=== PATIENT | male | born 1980 | race Caucasian/White ===

== ENCOUNTER 2018-07-08 13:19 | Inpatient (IN) ==
[2018-07-08] MEDS ORDERED: Ipratropium/Albuterol Neb 3 ML IH ONE (13:26)
--- NOTE | 2018-07-08 13:27 | Emergency Department Note ---
Disposition Clinical Impression: Elevated troponin Pneumonia Qualifiers: Pneumonia type: due to unspecified organism Laterality: unspecified laterality Lung location: unspecified part of lung Qualified Code(s): J18.9 - Pneumonia, unspecified organism Sepsis Qualifiers: Sepsis type: sepsis due to unspecified organism Qualified Code(s): A41.9 - Sepsis, unspecified organism Disposition: Admitted As Inpatient Condition: Fair Time of Disposition: 20:29 General Adult HPI - General Stated complaint: flu like symptoms Time Seen by Provider: 07/08/18 13:21 Nursing Notes Reviewed: Yes Vital Signs Reviewed: Yes - History of Present Illness HPI Narrative: 37-year-old male presents emergency department with concern for cough, sputum production, generalized weakness over the last 3 weeks with myalgias. Patient reports IV drug use. Denies chest pain, pressure, tightness. Patient denies any nausea, vomiting, hemoptysis, but does report subjective fever. - Related Data Home Medications Medication Instructions Recorded Confirmed Acetaminophen [Pain Relief] 500 mg PO BID PRN 07/08/18 07/08/18 Buprenorphine HCl/Naloxone HCl 1 tab PO BID 07/08/18 07/08/18 [Buprenorphin-Naloxon 8-2 mg Sl] Ibuprofen [Ibuprofen] 800 mg PO TID PRN 07/08/18 07/08/18 Allergies Allergy/AdvReac Type Severity Reaction Status Date / Time codeine Allergy Rash Verified 07/08/18 13:30 tramadol Allergy Rash Verified 07/08/18 13:30 All systems ED: reviewed and negative except as stated. Review of Systems: As Per HPI Constitutional: Reports: fever, chills Cardiovascular: Denies: chest pain Respiratory: Reports: cough, dyspnea. Denies: wheezes, hemoptysis Gastrointestinal: Denies: abdominal pain, nausea, vomiting Genitourinary: Denies: urgency, dysuria, frequency Musculoskeletal: Reports: myalgia Integumentary: Denies: rash Neurological: Reports: headache Physical Exam - General Limitations: no limitations General appearance: alert, other (Patient appears uncomfortable, fatigued) - Head Head exam: normocephalic - Eye Eye exam: Present: EOMI. Absent: scleral icterus - ENT ENT exam: mucous membranes dry - Neck Neck exam: Present: trachea midline - Chest Chest inspection: Present: symmetric chest wall rise - Respiratory Respiratory exam: Present: other (Decreased aeration of the lungs, mild rhonchi throughout.). Absent: wheezes - Cardiovascular Cardiovascular exam: Present: tachycardia, normal heart sounds - Abdominal Exam Abdominal exam: Present: soft, Non-Tender. Absent: distention, guarding, rebound, rigidity - Extremities Exam Extremities exam: Present: normal capillary refill - Back Exam Back exam: Present: full ROM - Neurological Exam Neurological exam: Present: alert, oriented X3, CN II-XII intact - Psychiatric Psychiatric exam: Present: normal affect, normal mood - Skin Skin exam: Present: warm, dry, intact, normal color. Absent: rash Course Vital Signs Temperature 99.2 F 07/08/18 13:24 Pulse Rate 116 07/08/18 13:24 Respiratory Rate 20 07/08/18 13:24 Blood Pressure 138/83 07/08/18 13:24 O2 Sat by Pulse Oximetry 97 07/08/18 13:24 Temperature 98 F 07/08/18 18:25 Pulse Rate 107 07/08/18 18:25 Respiratory Rate 16 07/08/18 20:04 Blood Pressure 102/68 07/08/18 18:25 O2 Sat by Pulse Oximetry 94 07/08/18 20:04 Oxygen Delivery Oxygen Delivery Room Air Medical Decision Making - MDM Narrative Medical decision making narrative: 37-year-old male presents emergency department with concern for generalized weakness, cough, sputum production, for the last 3 weeks. Patient currently tachycardic. Patient was given 2 L of fluids. Patient had a leukocytosis of 31.7. We will obtain a lactic acid. This was normal. We also obtained blood cultures. Patient's EKG did not reveal any ischemic ST changes. Patient had a elevation of troponin 0.04. Most likely secondary to infection and management ischemia as patient was tachycardic. He is not reported chest pain. We did however, given aspirin. Patient was given DuoNeb's. Chest x-ray, per radiology , states there is multifocal lung consolidation right middle lobe and left lower lobe to is concern for pneumonia. Patient was started on think my so, Levaquin, Zosyn. Patient stable throughout his stay. Patient was difficult to obtain intravenous access. Midline team was called down to place line. They placed successfully. Patient is medically stable and not in acute distress at time of admission to the hospitalist who agreed to accept him. Chest X-Ray 07/08/18 13:25 IMPRESSION: Multifocal lung consolidation in the right middle lobe and left lower lobe concerning for pneumonia. Radiographic follow-up recommended in 4-6 weeks. D/ / 07/08/2018 15:35:39 Primitivo Chery MD / tkyer Interpreting Provider: Primitivo Chery MD Vital Signs Temperature 99.2 F 07/08/18 13:24 Pulse Rate 116 07/08/18 13:24 Respiratory Rate 20 07/08/18 13:24 Blood Pressure 138/83 07/08/18 13:24 O2 Sat by Pulse Oximetry 97 07/08/18 13:24 Temperature 98 F 07/08/18 18:25 Pulse Rate 107 07/08/18 18:25 Respiratory Rate 16 07/08/18 20:04 Blood Pressure 102/68 07/08/18 18:25 O2 Sat by Pulse Oximetry 94 07/08/18 20:04 Oxygen Delivery Oxygen Delivery Room Air This documentation is done with the assistance of Dragon dictation. Despite efforts made to ensure accuracy, there may be inaccuracies in medical record retrieval specialist or spelling and typographical errors. I examined this patient and my medical decision-making was reviewed with the Resident Physician. I agree with the documented findings, disposition and treatment plan as described except to the extent set forth below. Patient seen and evaluated on arrival with Dr. Gentile and EMS, I agree with his evaluation and management plan, supervise care the patient's stay. Patient's had some cough some wheezing and subjective fevers been going on for 2 weeks. History of being a smoker possible pneumonia or flu. We have had a few positive flu tests here and so we will swab him also and then reassess. He is in agreement with this plan. 1530 hrs.: Due to limited IV access. Patient is getting a midline placed. Waiting chemistry then admission. 1542 hrs.: Patient's chemistries back. Troponins positive. He denies any chest pain. Renal functions okay. I am going to give him an aspirin here and then we will go ahead and admit him. His midline is being placed. 1700 hrs.: Patient is still in the ER is there is a better hold right now. He stable and sleeping. His and a bikes infusing. Once he gets about upstairs he will be transferred there. Hospitalist has artery written orders. - Lab Data Result diagrams: 07/08/18 14:11 07/08/18 14:11 Lab Results 07/08/18 07/08/18 07/08/18 Range/Units 14:11 14:11 14:11 WBC 31.7 H* (4.3-11.1) K/mcL RBC 4.82 (4.19-5.50) M/mcL Hgb 12.3 L (12.9-16.9) g/dL Hct 35.8 L (37.5-50.1) % MCV 74.3 L (83.0-100.0) fL MCH 25.5 L (28.0-33.3) pg MCHC 34.4 (31.6-35.5) g/dL RDW 14.6 H (11.5-14.5) % Plt Count 118 L (140-400) K/mcL MPV 11.3 (9.4-12.4) fL Seg Neutrophils % 92.0 % Band Neutrophils % 2.0 (0-4) % Lymphocytes % 6.0 % Neutrophils # 29.8 H (1.6-8.9) K/mcL Lymphocytes # 1.9 (0.6-4.6) K/mcL Platelet Estimate Slight Decrease L (Normal) Sodium 126 L (136-145) mEq/L Potassium 3.2 L (3.5-5.1) mEq/L Chloride 89 L (98-107) mEq/L Carbon Dioxide 28 (23-29) mEq/L BUN 18 (6-20) mg/dL Creatinine 0.64 L (0.70-1.30) mg/dL Est GFR ( Amer) > 60 (> 60) Est GFR (Non-Af Amer) > 60 (> 60) BUN/Creatinine Ratio 28 H (6-26) Glucose 106 H (70-105) mg/dL Calculated Osmolality 264 L (280-300) Lactic Acid 1.8 (0.5-2.2) mmol/L Calcium 7.8 L (8.6-10.3) mg/dL Magnesium 2.1 (1.6-2.6) mg/dL Total Bilirubin 1.5 H (0.3-1.0) mg/dL AST 22 (13-39) Units/L ALT 23 (7-52) Units/L Alkaline Phosphatase 148 H (34-104) Units/L Troponin I 0.04 H* (< 0.04) ng/mL Serum Total Protein 7.3 (6.4-8.9) g/dL Albumin 2.5 L (3.5-5.7) g/dL Globulin 4.8 H (2.4-3.5) g/dL Albumin/Globulin Ratio 0.5 L (1.1-2.2) Urine Color (Yellow) Urine Clarity (Clear) Urine pH (5.0-8.0) pH Units Ur Specific [place] (1.010-1.025) Urine Protein (Neg-Trace) mg/dL Urine Glucose (UA) (Normal) mg/dL Urine Ketones (Negative) mg/dL Urine Blood (Negative) Urine Nitrite (Negative) Urine Bilirubin (Negative) Urine Urobilinogen (Normal) mg/dL Ur Leukocyte Esterase (Negative) Urine Microscopic RBC (0-3) per hpf Urine Microscopic WBC (0-3) per hpf Ur Squamous Epith Cells (None-Few) per lpf Urine Bacteria (None-Few) per hpf Hyaline Casts (None-Few) per lpf Ur Culture Indicated? (NO) 07/08/18 Range/Units 14:14 WBC (4.3-11.1) K/mcL RBC (4.19-5.50) M/mcL Hgb (12.9-16.9) g/dL Hct (37.5-50.1) % MCV (83.0-100.0) fL MCH (28.0-33.3) pg MCHC (31.6-35.5) g/dL RDW (11.5-14.5) % Plt Count (140-400) K/mcL MPV (9.4-12.4) fL Seg Neutrophils % % Band Neutrophils % (0-4) % Lymphocytes % % Neutrophils # (1.6-8.9) K/mcL Lymphocytes # (0.6-4.6) K/mcL Platelet Estimate (Normal) Sodium (136-145) mEq/L Potassium (3.5-5.1) mEq/L Chloride (98-107) mEq/L Carbon Dioxide (23-29) mEq/L BUN (6-20) mg/dL Creatinine (0.70-1.30) mg/dL Est GFR ( Amer) (> 60) Est GFR (Non-Af Amer) (> 60) BUN/Creatinine Ratio (6-26) Glucose (70-105) mg/dL Calculated Osmolality (280-300) Lactic Acid (0.5-2.2) mmol/L Calcium (8.6-10.3) mg/dL Magnesium (1.6-2.6) mg/dL Total Bilirubin (0.3-1.0) mg/dL AST (13-39) Units/L ALT (7-52) Units/L Alkaline Phosphatase (34-104) Units/L Troponin I (< 0.04) ng/mL Serum Total Protein (6.4-8.9) g/dL Albumin (3.5-5.7) g/dL Globulin (2.4-3.5) g/dL Albumin/Globulin Ratio (1.1-2.2) Urine Color Dark Yellow (Yellow) Urine Clarity Clear (Clear) Urine pH 6.0 (5.0-8.0) pH Units Ur Specific [place] > 1.030 H (1.010-1.025) Urine Protein 30 H (Neg-Trace) mg/dL Urine Glucose (UA) Normal (Normal) mg/dL Urine Ketones 15 H (Negative) mg/dL Urine Blood Small H (Negative) Urine Nitrite Negative (Negative) Urine Bilirubin Moderate H (Negative) Urine Urobilinogen 4.0 H (Normal) mg/dL Ur Leukocyte Esterase Trace H (Negative) Urine Microscopic RBC 0-3 (0-3) per hpf Urine Microscopic WBC 5-15 H (0-3) per hpf Ur Squamous Epith Cells Many H (None-Few) per lpf Urine Bacteria Few (None-Few) per hpf Hyaline Casts None Seen (None-Few) per lpf Ur Culture Indicated? NO. A (NO) - EKG Data EKG #1 EKG attestation: Yes I reviewed and interpreted this EKG. EKG results narrative: 13:30 Heart rate 111 bpm, VA 135 ms, QRS duration 104 ms, QT 350 ms, normal axis. Sinus tachycardia with a ventricular rate of 111 bpm. No evidence of any ischemic ST changes on this EKG. Critical Care Time Critical Care Time: Yes Total Critical Care Time: 35 Attestation: Excluding any separately billable procedures.
[2018-07-08] MEDS ORDERED: 0.9 % Sodium Chloride 1,000 ML IVC ONE ×2 (13:28→15:04)
[2018-07-08 14:27] LABS: Mean Platelet Volume 11.3 fL (9.4-12.4)
[2018-07-08 14:29] LABS: Hematocrit 35.8 % (37.5-50.1); Hemoglobin 12.3 g/dL (12.9-16.9); Mean Corpuscular HGB Conc 34.4 g/dL (31.6-35.5); Mean Corpuscular Hemoglobin 25.5 pg (28.0-33.3); Mean Corpuscular Volume 74.3 fL (83.0-100.0); Platelet Count 118 K/mcL (140-400); Red Blood Count 4.82 M/mcL (4.19-5.50); Red Cell Distribution Width 14.6 % (11.5-14.5)
[2018-07-08 14:31] LABS: Bilirubin,Urine Moderate (Negative); Blood,Urine Small (Negative); Clarity,Urine Clear (Clear); Color,Urine Dark Yellow (Yellow); Glucose,Urine (UA) Normal (Normal); Ketones,Urine 15 mg/dL (Negative); Leukocyte Esterase,Urine Trace (Negative); Nitrite,Urine Negative (Negative); Protein,Urine 30 mg/dL (Neg-Trace); Specific Gravity,Urine > 1.030 (1.010-1.025)
[2018-07-08 14:32] LABS: Hyaline Casts,Urine None Seen per lpf (None-Few); RBC,Urine 0-3 per hpf (0-3); Squamous Epithelial Cell,Urine Many per lpf (None-Few)
[2018-07-08 14:42] LABS: Bacteria,Urine Few per hpf (None-Few)
[2018-07-08] MEDS ORDERED: Piperacillin/Tazobactam 3.375 GM in 0.9 % Sodium Chloride Mini Bag 100 ML IVPB ONE (14:51)
[2018-07-08 14:57] LABS: Troponin I 0.04 ng/mL (< 0.04)
[2018-07-08 15:01] LABS: Lymphocytes # 1.9 K/mcL (0.6-4.6); Neutrophils # 29.8 K/mcL (1.6-8.9); Platelet Estimate Slight Decrease (Normal)
[2018-07-08] MEDS ORDERED: Acetaminophen 325 MG TABLET PO ONE (15:19)
[2018-07-08] MEDS ORDERED: Levofloxacin 750 MG/150 ML 750 MG/150 ML BAG IVPB STA (15:25)
[2018-07-08 15:39] LABS: Alanine Aminotransferase 23 Units/L (7-52); Albumin 2.5 g/dL (3.5-5.7); Albumin/Globulin Ratio 0.5 (1.1-2.2); Alkaline Phosphatase 148 Units/L (34-104); Aspartate Amino Transferase 22 Units/L (13-39); BUN/Creatinine Ratio 28 (6-26); Bilirubin,Total 1.5 mg/dL (0.3-1.0); Blood Urea Nitrogen 18 mg/dL (6-20); Calcium 7.8 mg/dL (8.6-10.3); Carbon Dioxide 28 mEq/L (23-29); Chloride 89 mEq/L (98-107); Globulin 4.8 g/dL (2.4-3.5); Glucose 106 mg/dL (70-105); Osmolality,Calculated 264 (280-300); Potassium 3.2 mEq/L (3.5-5.1); Sodium 126 mEq/L (136-145); Total Protein 7.3 g/dL (6.4-8.9); eGFR For Non-African Americans > 60 (> 60)
[2018-07-08] MEDS ORDERED: Aspirin 81 MG TAB.CHEW PO STA (15:42)
[2018-07-08] MEDS ORDERED: Ketorolac 15 MG/ML VIAL IVP ONE (16:06)
[2018-07-08 16:07] LABS: Magnesium 2.1 mg/dL (1.6-2.6)
[2018-07-08] MEDS ORDERED: *HR* HYDROcodone/Acet 5/325 mg TABLET PO PRN (17:42)
[2018-07-08] MEDS ORDERED: *HR* OxyCODONE Immed Rel 5 MG TABLET PO PRN (17:42)
[2018-07-08] MEDS ORDERED: Naloxone 0.4 MG/ML INJ IVP PRN (17:42)
[2018-07-08] MEDS ORDERED: Acetaminophen 325 MG TABLET PO PRN (17:42)
[2018-07-08] MEDS ORDERED: Ondansetron 4 MG/2 ML VIAL IVP PRN (17:42)
[2018-07-08] MEDS ORDERED: 0.9 % Sodium Chloride 1,000 ML IVC SCH (17:45)
--- NOTE | 2018-07-08 17:58 | Internal Med History&Physical ---
Date of Encounter: 07/08/18 Time of Encounter: 17:20 Internal Medicine - H&P: HPI Chief complaint: SOB, COugh with expectoration Admitted From: Emergency Dept Plans for Post Hospital Care: Home History of present illness: Mr. Dill is a 37 year old male with known PMH of IV drug abuse with Heroin, who is currently on Suboxone therapy however still doing IV Heroin, had last dose 4 days ago now he presented to ER with worsening SOB, Cough with expectoration from last 10 days. Pt stated he had flu like symptoms to start with later he developed with cough with greenish expectoration and shortness of breath. He does have b/l chest pain, abdominal and generalized body pains. He had fever with T max-100.2. Past Med Surg Social Fam HX - Past Medical History Medical history: no medical history Psychiatric history: no psych history - Social History Smoking Status: Current every day smoker Smokeless Tobacco Status: No Alcohol use: none Drug use: opiates, IV Drug Use - Additional Family History Additional family history: Family hsitory reviewed and non contribuitory to current problem. Internal Medicine - H&P: Meds Acetaminophen [Pain Relief] 500 mg PO BID PRN 07/08/18 [History] Buprenorphine HCl/Naloxone HCl [Buprenorphin-Naloxon 8-2 mg Sl] 1 tab PO BID [History] Ibuprofen [Ibuprofen] 800 mg PO TID PRN 07/08/18 [History] 3 Allergy/AdvReac Type Severity Reaction Status Date / Time codeine Allergy Rash Verified 07/08/18 13:30 tramadol Allergy Rash Verified 07/08/18 13:30 All Systems PM: A 10-system review of systems was performed and is negative for pertinent findings except as documented above in the HPI. Review of systems: All the systems are reviewed everything is benign except the systems and symptoms I mentioned in the history of present illness - Constitutional Vitals: Temp Pulse Resp BP Pulse Ox 100.2 F H 100 32 118/80 95 07/08/18 14:48 07/08/18 17:20 07/08/18 17:20 07/08/18 17:20 07/08/18 17:20 General appearance: Present: cooperative, mild distress, A&O X 3, answers questions appropriately Exam: See below - Head Head exam: Present: atraumatic, normal inspection - Neck Neck exam general surgery: Present: supple - Respiratory Respiratory exam: Present: decreased breath sounds, rhonchi (++). Absent: rales , respiratory distress, wheezes - Cardiovascular Cardiovascular exam: Present: +S1, +S2, tachycardia. Absent: systolic murmur - GI/Abdominal GI/Abdominal exam: Present: normal bowel sounds, soft. Absent: rebound, rigid, tenderness - Extremities Exam Extremities exam: Absent: calf tenderness, pedal edema, tenderness - Back Exam Back exam: Absent: CVA tenderness (L), CVA tenderness (R) - Neurological Exam Neurological exam: Present: alert, oriented X3 - Psychiatric Psychiatric exam: Present: normal affect, normal mood - Skin Skin exam: Present: dry Internal Med - H&P Results - Labs CBC & Chem 7: 07/08/18 14:11 07/08/18 14:11 - Assessment and plan (1) Sepsis Current Visit: Yes Status: Acute Assessment and plan: Admit the patient into tele he does meet sepsis criteria with the leukocytosis, sinus tachycardia, fever and source of infection as pneumonia WBC at 31.7 normal lactic acid IVF NS @ 125ml/hr broad spec abx cont close monitoring Qualifiers: Sepsis type: sepsis due to unspecified organism Qualified Code(s): A41.9 - Sepsis, unspecified organism (2) Multifocal pneumonia Current Visit: Yes Status: Acute Assessment and plan: Reviewed chest x-ray showed infiltrates and right middle lobe and left lower lobe concerning for multifocal pneumonia mostly bacterial since patient seems to be toxic to start him on broad-spectrum antibiotic Zosyn , levofloxacin and vancomycin Duoneb and O2 Blood cx drawn will check sputum culture, Gram stain, step pneumonia, Legionella antigen and respiratory viral panel (3) Elevated troponin Current Visit: Yes Status: Acute Assessment and plan: Mostly due to demand ischemia with the sepsis and pneumonia no acute ischemic changes on EKG other than sinus tachycardia with HR @ 111 trend on troponin no further workup needed (4) IV drug abuse Current Visit: Yes Status: Acute Assessment and plan: Counseled to quit drugs Cont Suboxone Also placed him CIWA protocol will give Ativan PRN for withdrawal symptoms (5) Tobacco dependence Current Visit: Yes Status: Acute Assessment and plan: Counseled to quit smoking placed on nicotine patch - Time Spent With Patient Total time spent is greater than 50% in coordination of care (as documented) at patient's floor/unit and/or counseling patient:
[2018-07-08 19:12] LABS: Amphetamine Screen,Urine Negative ng/mL (Cutoff=1000); Barbiturate Screen,Urine Negative ng/mL (Cutoff=200); Benzodiazepines Screen,Urine Negative ng/mL (Cutoff=200); Cannabinoid Screen,Urine Negative ng/mL (Cutoff = 50); Cocaine Screen,Urine Negative ng/mL (Cutoff= 300); Opiate Screen,Urine Positive ng/mL (Cutoff=300); Phencyclidine Screen,Urine Negative ng/mL (Cutoff=25)
[2018-07-08 19:45] LABS: Adenovirus Not Detected (Not Detect); Bordetella Pertussis Not Detected (Not Detect); Chlamydophila pneumoniae Not Detected (Not Detect); Coronavirus 229E Not Detected (Not Detect); Coronavirus HKU1 Not Detected (Not Detect); Coronavirus NL63 Not Detected (Not Detect); Coronavirus OC43 Not Detected (Not Detect); Human Metapneumovirus Not Detected (Not Detect); Human Rhinovirus/Enterovirus Not Detected (Not Detect); Influenza A Subtype 2009 H1 Not Detected (Not Detect); Influenza A Untypeable Not Detected (Not Detect); Influenza B Not Detected (Not Detect); Mycoplasma pneumoniae Not Detected (Not Detect); Parainfluenza Virus 1 Not Detected (Not Detect); Parainfluenza Virus 2 Not Detected (Not Detect); Parainfluenza Virus 3 Not Detected (Not Detect); Parainfluenza Virus 4 Not Detected (Not Detect); Respiratory Syncytial Virus Not Detected (Not Detect)
[2018-07-08] MEDS: Ipratropium/Albuterol Neb 3 ML IH SCH (20:04)
[2018-07-09] MEDS: Ipratropium/Albuterol Neb 3 ML IH SCH ×7 (00:05→22:55)
[2018-07-09] MEDS: Levofloxacin 750 MG/150 ML 750 MG/150 ML BAG IVPB SCH (10:40)
[2018-07-09 10:54] LABS: Basophils % 0.2 %; Eosinophils # 0.1 K/mcL (0.0-0.6); Eosinophils % 0.3 %; Hematocrit 29.4 % (37.5-50.1); Hemoglobin 9.5 g/dL (12.9-16.9); Immature Granulocytes % 1.1 % (0-4); Immature Platelets 8.7 % (1.1-6.1); Lymphocytes % 6.4 %; Mean Corpuscular HGB Conc 32.3 g/dL (31.6-35.5); Mean Corpuscular Hemoglobin 25.3 pg (28.0-33.3); Mean Corpuscular Volume 78.4 fL (83.0-100.0); Mean Platelet Volume 12.2 fL (9.4-12.4); Monocytes # 1.6 K/mcL (0.0-1.3); Monocytes % 8.1 %; Neutrophils # 16.4 K/mcL (1.6-8.9); Red Blood Count 3.75 M/mcL (4.19-5.50); Red Cell Distribution Width 15.2 % (11.5-14.5); Segmented Neutrophils % 83.9 %
[2018-07-09] MEDS: *HR* LORazepam 0.5 MG TABLET PO PRN ×2 (10:55→16:52)
[2018-07-09 12:13] LABS: Acinetobacter baumannii by PCR Not Detected (Not Detect); Candida albicans by PCR Not Detected (Not Detect); Candida glabrata by PCR Not Detected (Not Detect); Candida krusei by PCR Not Detected (Not Detect); Candida parapsilosis by PCR Not Detected (Not Detect); Candida tropicalis by PCR Not Detected (Not Detect); Enterobacter cloacae Cmplx PCR Not Detected (Not Detect); Enterobacteriaceae by PCR Not Detected (Not Detect); Enterococcus by PCR Not Detected (Not Detect); Escherichia coli by PCR Not Detected (Not Detect); Klebsiella oxytoca by PCR Not Detected (Not Detect); Klebsiella pneumoniae by PCR Not Detected (Not Detect); Proteus by PCR Not Detected (Not Detect); Pseudomonas aeruginosa by PCR Not Detected (Not Detect); Serratia marcescens by PCR Not Detected (Not Detect); Staphylococcus aureus by PCR DETECTED (Not Detect); Staphylococcus by PCR DETECTED (Not Detect); Streptococcus agalactiae(B)PCR Not Detected (Not Detect); Streptococcus by PCR Not Detected (Not Detect); Streptococcus pneumoniae PCR Not Detected (Not Detect); Streptococcus pyogenes (A) PCR Not Detected (Not Detect); mecA Methicillin-Resist Gene DETECTED (Not Detect)
[2018-07-09 12:22] LABS: Alanine Aminotransferase 19 Units/L (7-52); Albumin 2.1 g/dL (3.5-5.7); Albumin/Globulin Ratio 0.6 (1.1-2.2); Alkaline Phosphatase 118 Units/L (34-104); Aspartate Amino Transferase 24 Units/L (13-39); BUN/Creatinine Ratio 27 (6-26); Bilirubin,Total 1.3 mg/dL (0.3-1.0); Blood Urea Nitrogen 16 mg/dL (6-20); Calcium 7.3 mg/dL (8.6-10.3); Carbon Dioxide 25 mEq/L (23-29); Chloride 102 mEq/L (98-107); Globulin 3.8 g/dL (2.4-3.5); Glucose 123 mg/dL (70-105); Magnesium 2.2 mg/dL (1.6-2.6); Osmolality,Calculated 279 (280-300); Potassium 3.3 mEq/L (3.5-5.1); Sodium 133 mEq/L (136-145); Total Protein 5.9 g/dL (6.4-8.9); eGFR For Non-African Americans > 60 (> 60)
--- NOTE | 2018-07-09 12:25 | Internal Med Progress Note ---
<Jesus Briceno - Last Filed: 07/09/18 16:28> Hospitalist Progress Note - Encounter Date of Encounter: 07/09/18 Time of Encounter: 12:13 - Subjective Interval History: Pt seen and examined at bedside. Resting comfortably, NAD. States that his symptoms have improved since yesterday. Pt complains of headaches, sob, cp, abdominal pain, myalgias; denies n/v/d - Exam Vitals: Temp Pulse Resp BP Pulse Ox 98.5 F 104 20 128/75 96 07/09/18 00:13 07/09/18 00:13 07/09/18 00:13 07/09/18 00:13 07/09/18 00:13 Exam: General: Alert and oriented. HEENT: mucus membranes moist, PERRLA, no cervical lymphaenopathy CV: +s1, s2; no s3 or s4, no rubs, murmurs or gallops; No JVD, pulses regular Lungs: rhonchi to ascultation of RLL field; decreased breath sounds b/l Abdomen: general pain to palpation Extremities: no edema or tenderness; no joint swelling or clubbing Neuro: pt awake and alert - Assessment and Plan (1) Multifocal pneumonia Current Visit: Yes Status: Acute Assessment and Plan: Multifocal lung consolidation in the right middle lobe and left lower lobe concerning for pneumonia seen on CXR WBC of 31 on admission, 19 today MRSA x2 on peripheral cx-->repeat cultures negative so far, Inflenza neg, legionella neg treating with Levaquin, vanc (day 2) (2) Sepsis Current Visit: Yes Status: Acute Assessment and Plan: Pt septic on admission elevated wbc, tachycardic, tachynipic today lactic acid not elevated cultures above Levaquin and vanc (day 2) (3) Elevated troponin Current Visit: Yes Status: Acute Assessment and Plan: Possibly due demand ischemia with the sepsis and pneumonia no acute ischemic changes on EKG other than sinus tachycardia with HR @ 111 troponin 0.04, trended and adynamic (4) Tobacco dependence Current Visit: Yes Status: Chronic Assessment and Plan: 17pk/yr history encouraged cessation (5) IV drug abuse Current Visit: Yes Status: Chronic Assessment and Plan: Pt states last IVDU was 4 days ago Currently taking Suboxone On CIWA protocol Given Ativan PRN for withdrawal symptoms (6) Bacteremia Current Visit: Yes Status: Acute Assessment and Plan: cultures above TTE to r/o valvular vegetations ID consult tomorrow - Time Spent with Patient Total time spent is greater than 50% in coordination of care (as documented) at patient's floor/unit and/or counseling patient: Internal Medicine: Result - Labs CBC & Chem 7: 07/09/18 01:59 07/09/18 01:59 Labs: Short CBC 07/08/18 Range/Units 14:11 WBC 31.7 H* (4.3-11.1) K/mcL Hgb 12.3 L (12.9-16.9) g/dL Hct 35.8 L (37.5-50.1) % Plt Count 118 L (140-400) K/mcL Neutrophils # 29.8 H (1.6-8.9) K/mcL BMP 07/08/18 14:11 Sodium 126 L Potassium 3.2 L Chloride 89 L Carbon Dioxide 28 BUN 18 Creatinine 0.64 L Glucose 106 H Calcium 7.8 L Cardiac Enzymes 07/08/18 07/08/18 Range/Units 14:11 20:15 Troponin I 0.04 H* 0.04 H* (< 0.04) ng/mL Liver Function 07/08/18 Range/Units 14:11 Total Bilirubin 1.5 H (0.3-1.0) mg/dL AST 22 (13-39) Units/L ALT 23 (7-52) Units/L Alkaline Phosphatase 148 H (34-104) Units/L Albumin 2.5 L (3.5-5.7) g/dL Urine 07/08/18 Range/Units 14:14 Urine Color Dark Yellow (Yellow) Urine Clarity Clear (Clear) Urine pH 6.0 (5.0-8.0) pH Units Ur Specific [place] > 1.030 H (1.010-1.025) Urine Protein 30 H (Neg-Trace) mg/dL Urine Glucose (UA) Normal (Normal) mg/dL - Impressions Impressions Chest X-Ray 07/08/18 13:25 IMPRESSION: Multifocal lung consolidation in the right middle lobe and left lower lobe concerning for pneumonia. Radiographic follow-up recommended in 4-6 weeks. D/ / 07/08/2018 15:35:39 Primitivo Chery MD / hung Interpreting Provider: Primitivo Chery MD Consult Discharge Plan - Plan Referrals: NONE,PCP [Primary Care Provider] - <Yaritza Espinoza - Last Filed: 07/09/18 18:07> Hospitalist Progress Note - Exam Vitals: Temp Pulse Resp BP Pulse Ox 98.4 F 104 26 128/78 96 07/09/18 17:04 07/09/18 17:04 07/09/18 17:04 07/09/18 17:04 07/09/18 17:04 - Assessment and Plan (1) Sepsis Current Visit: Yes Status: Acute (2) Multifocal pneumonia Current Visit: Yes Status: Acute (3) Elevated troponin Current Visit: Yes Status: Acute (4) IV drug abuse Current Visit: Yes Status: Chronic (5) Tobacco dependence Current Visit: Yes Status: Chronic - Time Spent with Patient Total time spent is greater than 50% in coordination of care (as documented) at patient's floor/unit and/or counseling patient: Internal Medicine: Result - Labs CBC & Chem 7: 07/09/18 16:00 07/09/18 01:59 Labs: Short CBC 07/09/18 07/09/18 Range/Units 01:59 16:00 WBC 19.5 H 15.3 H (4.3-11.1) K/mcL Hgb 9.5 L D 10.2 L (12.9-16.9) g/dL Hct 29.4 L 31.4 L (37.5-50.1) % Plt Count 82 L 108 L (140-400) K/mcL Neutrophils # 16.4 H 11.8 H (1.6-8.9) K/mcL BMP 07/08/18 07/09/18 14:11 01:59 Sodium 126 L 133 L Potassium 3.2 L 3.3 L Chloride 89 L 102 Carbon Dioxide 28 25 BUN 18 16 Creatinine 0.64 L 0.60 L Glucose 106 H 123 H Calcium 7.8 L 7.3 L Cardiac Enzymes 07/08/18 07/08/18 07/09/18 Range/Units 14:11 20:15 07:55 Troponin I 0.04 H* 0.04 H* < 0.03 (< 0.04) ng/mL Liver Function 07/08/18 07/09/18 Range/Units 14:11 01:59 Total Bilirubin 1.5 H 1.3 H (0.3-1.0) mg/dL AST 22 24 (13-39) Units/L ALT 23 19 (7-52) Units/L Alkaline Phosphatase 148 H 118 H (34-104) Units/L Albumin 2.5 L 2.1 L (3.5-5.7) g/dL - Impressions Impressions Chest X-Ray 07/08/18 13:25 IMPRESSION: Multifocal lung consolidation in the right middle lobe and left lower lobe concerning for pneumonia. Radiographic follow-up recommended in 4-6 weeks. D/ / 07/08/2018 15:35:39 Primitivo Chery MD / hung Interpreting Provider: Primitivo Chery MD - Attending Attestation The history, physical exam, and medical decision making was performed by the medical student Dr. Briceno, either while I was physically present and actively involved or I personally re-performed the exam and medical decision making. I have verified the accuracy of the medical student's documentation with regards to the history, physical exam findings, and medical decision making. Mr. Dill is a 37 year old male with known PMH of IV drug abuse with Heroin, who is currently on Suboxone therapy however still doing IV Heroin, had last dose 4 days ago now he presented to ER with worsening SOB, Cough with expectoration from last 10 days. Pt stated he had flu like symptoms to start with later he developed with cough with greenish expectoration and shortness of breath. Pt states he is feeling little better today. Still has generalized body pains. Gen: A, A, O x 3 Chest: Diminished BS b/l, no wheezing, mild ronchi Heart: S1S2+ no murmurs, mild tachycardia 1. Sepsis 2. Bactremia with G+Ve cocci ( possible MRSA ) 3. Multi focal PNA 4. IV drug abuse cont broad spec abx Zosyn, Vanc and Levaquin 2D Echo in AM repeat blood cx ID Consulted Ativan PRN for withdraw symptoms <Jesus Briceno - Last Filed: 07/09/18 16:28> (2) Sepsis Qualifiers: Sepsis type: sepsis due to unspecified organism Qualified Code(s): A41.9 - Sepsis, unspecified organism <Yaritza Espinoza - Last Filed: 07/09/18 18:07> (1) Sepsis Qualifiers: Sepsis type: sepsis due to unspecified organism Qualified Code(s): A41.9 - Sepsis, unspecified organism
[2018-07-09] MEDS: *HR* Enoxaparin 40 MG/0.4 ML SYRINGE SQ SCH (12:38)
[2018-07-09 12:47] LABS: Lymphocytes # 1.3 K/mcL (0.6-4.6); Platelet Count 82 K/mcL (140-400)
[2018-07-09 12:48] LABS: Platelet Estimate Decreased (Normal)
--- NOTE | 2018-07-09 13:43 | Electrocardiograph Report ---
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
[2018-07-09] MEDS ORDERED: Vancomycin 1,000 MG VIAL IVPB ONE (15:05)
[2018-07-09] MEDS ORDERED: Ipratropium/Albuterol Neb 3 ML IH ONE ×3 (15:05)
[2018-07-09] MEDS ORDERED: *HR* Enoxaparin 40 MG/0.4 ML SYRINGE SQ ONE (15:05)
[2018-07-09] MEDS ORDERED: *HR* LORazepam 0.5 MG TABLET PO ONE (15:05)
[2018-07-09] MEDS ORDERED: 0.9 % Sodium Chloride 1,000 ML IV.SOLN IV ONE (15:05)
[2018-07-09] MEDS: Ketorolac 15 MG/ML VIAL IVP PRN (16:52)
[2018-07-09 17:45] LABS: Basophils % 0.2 %; Eosinophils # 0.2 K/mcL (0.0-0.6); Eosinophils % 1.1 %; Hematocrit 31.4 % (37.5-50.1); Immature Granulocytes % 1.4 % (0-4); Lymphocytes # 1.7 K/mcL (0.6-4.6); Lymphocytes % 10.9 %; Mean Corpuscular HGB Conc 32.5 g/dL (31.6-35.5); Mean Corpuscular Hemoglobin 25.3 pg (28.0-33.3); Mean Corpuscular Volume 77.9 fL (83.0-100.0); Mean Platelet Volume 11.9 fL (9.4-12.4); Monocytes # 1.4 K/mcL (0.0-1.3); Monocytes % 9.4 %; Platelet Count 108 K/mcL (140-400); Red Blood Count 4.03 M/mcL (4.19-5.50); Red Cell Distribution Width 15.2 % (11.5-14.5)
[2018-07-09 17:46] LABS: Hemoglobin 10.2 g/dL (12.9-16.9); Neutrophils # 11.8 K/mcL (1.6-8.9)
[2018-07-09] MEDS ORDERED: Perflutren Lipid Microsphere 1.3 ML in 0.9 % Sodium Chloride 8.7 ML IVP ONE (19:56)
[2018-07-10] MEDS: *HR* LORazepam 0.5 MG TABLET PO PRN (02:23)
[2018-07-10] MEDS: Ipratropium/Albuterol Neb 3 ML IH SCH ×6 (03:13→23:01)
[2018-07-10 03:49] LABS: Acinetobacter baumannii by PCR Not Detected (Not Detect); Candida albicans by PCR Not Detected (Not Detect); Candida glabrata by PCR Not Detected (Not Detect); Candida krusei by PCR Not Detected (Not Detect); Candida parapsilosis by PCR Not Detected (Not Detect); Candida tropicalis by PCR Not Detected (Not Detect); Enterobacter cloacae Cmplx PCR Not Detected (Not Detect); Enterobacteriaceae by PCR Not Detected (Not Detect); Enterococcus by PCR Not Detected (Not Detect); Escherichia coli by PCR Not Detected (Not Detect); Klebsiella oxytoca by PCR Not Detected (Not Detect); Klebsiella pneumoniae by PCR Not Detected (Not Detect); Proteus by PCR Not Detected (Not Detect); Pseudomonas aeruginosa by PCR Not Detected (Not Detect); Serratia marcescens by PCR Not Detected (Not Detect); Staphylococcus aureus by PCR DETECTED (Not Detect); Staphylococcus by PCR DETECTED (Not Detect); Streptococcus agalactiae(B)PCR Not Detected (Not Detect); Streptococcus by PCR Not Detected (Not Detect); Streptococcus pneumoniae PCR Not Detected (Not Detect); Streptococcus pyogenes (A) PCR Not Detected (Not Detect); mecA Methicillin-Resist Gene DETECTED (Not Detect)
[2018-07-10] MEDS: Ketorolac 15 MG/ML VIAL IVP PRN ×2 (06:38→15:56)
[2018-07-10] MEDS: *HR* Enoxaparin 40 MG/0.4 ML SYRINGE SQ SCH (07:38)
--- NOTE | 2018-07-10 08:39 | Internal Med Progress Note ---
<Jesus Briceno - Last Filed: 07/10/18 13:25> Hospitalist Progress Note - Encounter Date of Encounter: 07/10/18 Time of Encounter: 13:26 - Subjective Interval History: Pt seen and examined at bedside. Resting comfortably, NAD. States that his symptoms have improved since yesterday. Pt denies headaches, sob, cp, abdominal pain, myalgias, n/v/d - Exam Vitals: Temp Pulse Resp BP Pulse Ox 99.7 F H 96 25 101/73 98 07/10/18 07:24 07/10/18 07:24 07/10/18 07:35 07/10/18 07:24 07/10/18 07:35 Exam: General: Alert and oriented, resting comfortably, NAD HEENT: mucus membranes moist, PERRLA, no cervical lymphaenopathy CV: +s1, s2; no s3 or s4, no rubs, murmurs or gallops; No JVD, pulses regular Lungs: decreased breath sounds b/l Abdomen: general pain to palpation Extremities: no edema or tenderness; no joint swelling or clubbing; no osler nodes or janeway lesions noted on hands Neuro: pt awake and alert - Assessment and Plan (1) Sepsis Current Visit: Yes Status: Acute Assessment and Plan: possibly secondary to multifocal pna, also have high suspicion for endocarditis in the setting of IVDU Pt septic on admission elevated wbc, tachycardic, tachynipic today lactic acid not elevated MRSA x2 on peripheral cx (07/08)-->repeat cultures show MRSA (07/09); Inflenza neg, legionella neg will repeat cx, tomorrow Levaquin and vanc (day 3) (2) Bacteremia Current Visit: Yes Status: Acute Assessment and Plan: MRSA x2 on peripheral cx (07/08)-->repeat cultures show MRSA (07/09); Inflenza neg, legionella neg ID consult Head CT negative for acute abnormalities Echo: LVEF 45%, mild global LV systolic dysf, mildly dilated RV and mild hyokenesis, moderately dilated RA, mild/moderate tricuspid regurg, mild pulm htn still suspicious of vegetations given tricuspid regurg, BOB ordered (3) Multifocal pneumonia Current Visit: Yes Status: Suspected Assessment and Plan: Multifocal lung consolidation in the right middle lobe and left lower lobe concerning for pneumonia seen on CXR WBC of 31 on admission, 19 today MRSA x2 on peripheral cx (07/08)-->repeat cultures show MRSA (07/09); Inflenza neg, legionella neg treating with Jenna vanc (day 3) CTA of chest to r/o septic emboli (4) Elevated troponin Current Visit: Yes Status: Acute Assessment and Plan: Possibly due demand ischemia with the sepsis and pneumonia no acute ischemic changes on EKG other than sinus tachycardia with HR @ 111 troponin 0.04, trended and adynamic (5) Tobacco dependence Current Visit: Yes Status: Chronic Assessment and Plan: 17pk/yr history encouraged cessation (6) IV drug abuse Current Visit: Yes Status: Chronic Assessment and Plan: Pt states last IVDU was 5 days ago Currently taking Suboxone On CIWA protocol Given Ativan PRN for withdrawal symptoms DVT Prophylaxis: lovenox - Time Spent with Patient Total time spent is greater than 50% in coordination of care (as documented) at patient's floor/unit and/or counseling patient: Internal Medicine: Result - Labs CBC & Chem 7: 07/10/18 09:25 07/10/18 09:25 Labs: Short CBC 07/09/18 07/09/18 Range/Units 01:59 16:00 WBC 19.5 H 15.3 H (4.3-11.1) K/mcL Hgb 9.5 L D 10.2 L (12.9-16.9) g/dL Hct 29.4 L 31.4 L (37.5-50.1) % Plt Count 82 L 108 L (140-400) K/mcL Neutrophils # 16.4 H 11.8 H (1.6-8.9) K/mcL BMP 07/08/18 07/09/18 14:11 01:59 Sodium 126 L 133 L Potassium 3.2 L 3.3 L Chloride 89 L 102 Carbon Dioxide 28 25 BUN 18 16 Creatinine 0.64 L 0.60 L Glucose 106 H 123 H Calcium 7.8 L 7.3 L Cardiac Enzymes 07/08/18 07/09/18 07/09/18 Range/Units 14:11 02:00 07:55 Troponin I 0.04 H* < 0.03 < 0.03 (< 0.04) ng/mL Liver Function 07/08/18 07/09/18 Range/Units 14:11 01:59 Total Bilirubin 1.5 H 1.3 H (0.3-1.0) mg/dL AST 22 24 (13-39) Units/L ALT 23 19 (7-52) Units/L Alkaline Phosphatase 148 H 118 H (34-104) Units/L Albumin 2.5 L 2.1 L (3.5-5.7) g/dL - Impressions Impressions Chest X-Ray 07/08/18 13:25 IMPRESSION: Multifocal lung consolidation in the right middle lobe and left lower lobe concerning for pneumonia. Radiographic follow-up recommended in 4-6 weeks. D/ / 07/08/2018 15:35:39 Primitivo Chery MD / hung Interpreting Provider: Primitivo Chery MD Head CT 07/09/18 19:30 IMPRESSION: No acute intracranial abnormality. Ethmoid sinus disease. D/ / Shari Souza Cha, MD / Shari Souza Cha, MD Interpreting Provider: Shari Souza Cha, MD Consult Discharge Plan - Plan Referrals: NONE,PCP [Primary Care Provider] - <Yaritza Espinoza - Last Filed: 07/10/18 18:06> Hospitalist Progress Note - Exam Vitals: Temp Pulse Resp BP Pulse Ox 99.9 F H 102 17 104/76 92 07/10/18 16:00 07/10/18 16:00 07/10/18 16:00 07/10/18 16:00 07/10/18 16:00 - Assessment and Plan (1) Sepsis Current Visit: Yes Status: Acute (2) Multifocal pneumonia Current Visit: Yes Status: Suspected (3) Elevated troponin Current Visit: Yes Status: Acute (4) IV drug abuse Current Visit: Yes Status: Chronic (5) Tobacco dependence Current Visit: Yes Status: Chronic - Time Spent with Patient Total time spent is greater than 50% in coordination of care (as documented) at patient's floor/unit and/or counseling patient: Internal Medicine: Result - Labs CBC & Chem 7: 07/10/18 09:25 07/10/18 09:25 Labs: Short CBC 07/10/18 Range/Units 09:25 WBC 18.1 H (4.3-11.1) K/mcL Hgb 9.5 L (12.9-16.9) g/dL Hct 29.1 L (37.5-50.1) % Plt Count 150 (140-400) K/mcL Neutrophils # 13.5 H (1.6-8.9) K/mcL BMP 07/10/18 09:25 Sodium 133 L Potassium 4.2 Chloride 102 Carbon Dioxide 27 BUN 16 Creatinine 0.73 Glucose 124 H Calcium 7.6 L Cardiac Enzymes 07/09/18 Range/Units 02:00 Troponin I < 0.03 (< 0.04) ng/mL - Impressions Impressions Echocardiogram 07/09/18 12:16 Impressions: LVEF 45%. Mild global left ventricular systolic dysfunction. Mildly dilated right ventricle with mild hypokinesis. Moderately dilated right atrium. Mild-moderate tricuspid regurgitation. Mild pulmonary hypertension. D-shape septum in diastole suggests RV volume overload. Head CT 07/09/18 19:30 IMPRESSION: No acute intracranial abnormality. Ethmoid sinus disease. D/ / Shari Souza Cha, MD / Shari Souza Cha, MD Interpreting Provider: Shari Souza Cha, MD Chest CTA 07/10/18 11:32 IMPRESSION: 1. Multiple ill-defined lung nodules most cavitated indicating septic emboli. Endocarditis should be considered. 2. Moderate bilateral pleural effusions and lower lobe atelectatic changes. 3. Mild right hilar and mediastinal adenopathy. 4. No evidence of acute pulmonary embolism. 5. Splenomegaly with the spleen measuring up to 15 cm. 6. Cardiomegaly and mild pericardial effusion. RECOMMENDATIONS: Echocardiogram to look for cardiac vegetations. D/ / 07/10/2018 14:04:06 Jen Conde MD / eric Interpreting Provider: Jen Conde MD - Attending Attestation The history, physical exam, and medical decision making was performed by the medical student Dr. Briceno, either while I was physically present and actively involved or I personally re-performed the exam and medical decision making. I have verified the accuracy of the medical student's documentation with regards to the history, physical exam findings, and medical decision making. Mr. Dill is a 37 year old male with known PMH of IV drug abuse with Heroin, who is currently on Suboxone therapy however still doing IV Heroin, had last dose 4 days ago now he presented to ER with worsening SOB, Cough with expectoration from last 10 days. Pt stated he had flu like symptoms to start with later he developed with cough with greenish expectoration and shortness of breath. Pt states he is feeling little better today. Gen: A, A, O x 3 Chest: Diminished BS b/l, no wheezing, mild ronchi Heart: S1S2+ no murmurs, mild tachycardia 1. Sepsis 2. Bactremia with G+Ve cocci ( possible MRSA ) 3. Multi focal PNA 4. IV drug abuse ID consulted CTA of chest showed septic embolic pneumonia Cont Vancomycin 2D Echo showed LVEF 45% , mild TR and MR BOB on Friday repeat blood cx from y/d growing MRSA Ativan PRN for withdraw symptoms <Yaritza Espinoza - Last Filed: 07/10/18 18:06> (1) Sepsis Qualifiers: Sepsis type: sepsis due to unspecified organism Qualified Code(s): A41.9 - Sepsis, unspecified organism
[2018-07-10] MEDS: Levofloxacin 750 MG/150 ML 750 MG/150 ML BAG IVPB SCH (09:26)
[2018-07-10 10:01] LABS: Basophils # 0.1 K/mcL (0.0-0.2); Basophils % 0.3 %; Eosinophils # 0.3 K/mcL (0.0-0.6); Eosinophils % 1.5 %; Hematocrit 29.1 % (37.5-50.1); Hemoglobin 9.5 g/dL (12.9-16.9); Immature Granulocytes % 2.9 % (0-4); Lymphocytes # 2.1 K/mcL (0.6-4.6); Lymphocytes % 11.7 %; Mean Corpuscular HGB Conc 32.6 g/dL (31.6-35.5); Mean Corpuscular Hemoglobin 25.5 pg (28.0-33.3); Mean Corpuscular Volume 78.2 fL (83.0-100.0); Mean Platelet Volume 12.5 fL (9.4-12.4); Monocytes # 1.6 K/mcL (0.0-1.3); Monocytes % 8.7 %; Neutrophils # 13.5 K/mcL (1.6-8.9); Platelet Count 150 K/mcL (140-400); Red Blood Count 3.72 M/mcL (4.19-5.50); Red Cell Distribution Width 15.4 % (11.5-14.5); Segmented Neutrophils % 74.9 %
[2018-07-10 10:03] LABS: BUN/Creatinine Ratio 22 (6-26); Blood Urea Nitrogen 16 mg/dL (6-20); Calcium 7.6 mg/dL (8.6-10.3); Carbon Dioxide 27 mEq/L (23-29); Chloride 102 mEq/L (98-107); Glucose 124 mg/dL (70-105); Magnesium 1.9 mg/dL (1.6-2.6); Osmolality,Calculated 279 (280-300); Potassium 4.2 mEq/L (3.5-5.1); Sodium 133 mEq/L (136-145); eGFR For Non-African Americans > 60 (> 60)
[2018-07-10] MEDS ORDERED: Isovue-370 500 ML INFUS..BTL IV ONE (11:32)
--- NOTE | 2018-07-10 12:39 | Infectious Disease Consult ---
Date of Encounter: 07/10/18 Time of Encounter: 12:37 Assessment and Plan (1) Sepsis Status: Acute Assessment and plan: The patient had three SIRS criteria on admission. Likely secondary to bacteremia and pneumonia. Improved. WBC trending down. Tachypnea has resolved. Continues to have tachycardia. Blood cultures drawn 07/08/18 are positive 2/2 sets for MRSA. Repeat blood cultures drawn 07/09/18 are positive 2/2 sets. Qualifiers: Sepsis type: sepsis due to unspecified organism Qualified Code(s): A41.9 - Sepsis, unspecified organism (2) Bacteremia Status: Acute Assessment and plan: Causative organism: MRSA. Source: likely IVDU. Blood cultures drawn 07/08/18 are positive 2/2 sets for MRSA. Repeat blood cultures drawn 07/09/18 are positive 2/2 sets. Concern for complicated bacteremia given the multifocal PNA noted on CXR. Concern that maybe these findings are actually septic emboli vs. PNA. No endocarditis stigmata noted on exam. The patient has one major and one minor Modified Meeks's Criteria. TTE completed and was negative for vegetation. Will need a BOB prior to discharge. Check rheumatoid factor. Repeat blood cultures in the AM. Discontinue Levaquin. Continue Vancomycin IV. Pharmacy to dose. Goal trough ~15. Vanc trough low at 9 yesterday. Will discuss dosing with pharmacy. Duration of treatment depends on the clinical picture. Monitor renal function and for drug toxicity and dose-adjust antibiotics. Avoid insertion of long-term IV access until repeat blood cultures are negative x 48 hours. Continue contact precautions per protocol. (3) Multifocal pneumonia Status: Suspected Assessment and plan: Location: Multifocal. Causative organism: Unclear. Not sure if CXR findings are from pneumonia vs. septic emboli. Strep pneumo and Legionella UATs negative. RIP negative. Get CT of the chest with IV contrast. Continue Vancomycin IV. Pharmacy to dose. Goal trough ~15. Discontinue Levaquin. Duration of treatment depends on the clinical picture. Monitor renal function and for drug toxicity and dose-adjust antibiotics. (4) Elevated troponin Status: Acute Assessment and plan: Troponins peaked at 0.04. Management per the primary team. (5) IV drug abuse Status: Chronic Assessment and plan: Reports a history of IV heroine use with last use 4 days [employer]. Check HIV. Check Hep B serologies. (6) Tobacco dependence Status: Chronic (7) Hepatitis C Status: Acute Assessment and plan: Known Hep C positive. Qualifiers: Viral hepatitis chronicity: chronic Hepatic coma status: without hepatic coma Qualified Code(s): B18.2 - Chronic viral hepatitis C (8) Back pain Status: Acute Assessment and plan: Patient reports generalized back pain. Check ESR and CRP. If elevated, consider imaging of the spine. Qualifiers: Back pain location: back pain in unspecified location Chronicity: acute Back pain laterality: unspecified Qualified Code(s): M54.9 - Dorsalgia, unspecified Infectious Disease HPI - Data of Consult Patient: new to practice Consult date: 07/10/18 Requesting Physician: Rory Gonzalez MD Primary Care Provider: PCP NONE - Consult Narrative Reason for consult: MRSA bacteremia History of present illness: Mr. Dill is a 37 year old male with a past medical history of IV drug use and Hepatitis C. The patient was admitted to the hospital July 08 for sepsis, pneumonia, and elevated troponin. We are consulted July 10 for further recommendations for MRSA bacteremia and pneumonia. Briefly, the patient's a 37-year-old male with past medical history as stated above. The patient presented to the emergency department with an 11 day history of flulike symptoms including cough productive of green/brown sputum, generalized weakness, subjective fevers and chills. Upon arrival, the patient was afebrile, but he was tachycardic and tachypneic with leukocytosis with neutrophilic predominance. His lactic acid and renal function were normal. Total Bili ws mildly elevated at 1.5 with alk phos of 148. He was noted to have thrombocytopenia as well. Troponin was positive at 0.04. Urinalysis appeared contaminated. Urine drug screen is positive for opiates. He had a chest x-ray that showed findings consistent with multifocal pneumonia. Blood cultures were obtained 2 sets. Flu antigen swab was negative. He was started on bank and Zosyn and admitted to the hospital for further evaluation. Since admission, the patient has had some intermittent low-grade fevers and tachycardia, but he has been otherwise hemodynamically stable. His white blood cell count has improved. He had a transthoracic echocardiogram showed an EF of 45%, but no valvular vegetations. Blood cultures obtained in the emergency department came back +2 of 2 sets for MRSA. Repeat blood cultures drawn 8 were also +2 out of 2 sets[address] He had a CT of the head that was negative for acute intracranial abnormality, but did show ethmoid sinus disease. Today, his white blood cell count is 18,000. He continues to have some intermittent tachycardia. A BOB has been ordered, but is currently on hold since the patient ate breakfast. A CT of the chest has been ordered. Currently, he is on vancomycin and Levaquin. We have been asked to evaluate and make further recommendations. During my exam today, the patient endorses a history as stated above. He reports onset of symptoms about 11 days ago. He states that he did use IV drugs about 4 days prior to admission because he was having so much pain. He states prior to that he had been using Suboxone as prescribed for about a month and a half. His IV drug abuse history is somewhat unclear. He reports headache, neck pain, back pain. He denies any congestion, earache, or sore throat. He reports pleuritic chest pain that increased with cough or deep inspiration. He reported shortness breath or cough productive of green/brown sputum. He denied any nausea or vomiting or diarrhea. He reported a very poor appetite and states that he has actually lost 30 pounds in the past month. He denies any oral thrush or skin lesions. He states he usually injects drugs in the right arm and denies any skin lesions or open sores in that area. The patient lives at home alone. 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 He smokes a pack of cigarettes per day. He denies any alcohol use. He has a history of IV drug use as stated above. He does report a history of hepatitis C and states that he was incarcerated for 27 months and was released in 2016. He has multiple tattoos that were all completed in senior care. He denies any pet or animal exposure. He denies recent travel outside the [facility]. CC: Rory Gonzalez MD Past Med Surg Social Fam HX - Past Medical History Attestation: Yes The following information was validated with the patient. Source: patient, old records reviewed, nursing notes reviewed Medical history: hepatitis (Hepatitis C) Psychiatric history: no psych history - Past Surgical History Surgical History: no surgical history - Social History Smoking Status: Current every day smoker Packs per day: 1 Smokeless Tobacco Status: No Alcohol use: none Drug use: opiates, IV Drug Use Occupational status: employed Current living situation: Home - Independent Activity Level: Independent ambulation Recent Out of Country Travel Within the Last 8 Weeks: No Exposure or Possible Exposure to Illness During Travel: No Infectious Disease-CN:Meds Acetaminophen [Pain Relief] 500 mg PO BID PRN 07/08/18 [History] Ibuprofen 800 mg PO TID PRN 07/08/18 [History] RX: Buprenorphine HCl/Naloxone HCl [Buprenorphin-Naloxon 8-2 mg Sl] 1 tab PO BID 07/08/18 [History] Allergy/AdvReac Type Severity Reaction Status Date / Time codeine Allergy Rash Verified 07/08/18 13:30 tramadol Allergy Rash Verified 07/08/18 13:30 All systems: reviewed and no additional remarkable complaints except as stated Exam - Constitutional Vitals: Temp Pulse Resp BP Pulse Ox 97.7 F 103 17 137/82 92 07/10/18 11:43 07/10/18 11:43 07/10/18 11:43 07/10/18 11:43 07/10/18 11:43 General appearance: average body habitus, cooperative, no acute distress - Head Head exam: Present: atraumatic, normal inspection, normocephalic - Eye Eye exam: Present: EOMI, normal appearance, PERRL Pupils: Present: normal accommodation Additional comments: No subconjunctival hemorrhage noted. - ENT ENT exam: Present: mucous membranes moist. Absent: normal oropharynx (Very poor dentition noted with multiple missing and broken teeth.) - Neck Neck exam: Present: normal inspection. Absent: tenderness - Respiratory Respiratory exam: Present: rales (Bilateral bases). Absent: respiratory distress, rhonchi, wheezes - Cardiovascular Cardiovascular exam: Present: +S1, +S2, tachycardia. Absent: irregular rhythm - GI/Abdominal GI/Abdominal exam: Present: normal bowel sounds, soft. Absent: distended, tenderness - Extremities Exam Extremities exam: Present: normal inspection. Absent: joint swelling, pedal edema, tenderness - Back Exam Back exam: Present: normal inspection. Absent: paraspinal tenderness, vertebral tenderness - Neurological Exam Neurological exam: Present: alert, oriented X3, no focal deficits - Psychiatric Psychiatric exam: Present: normal affect, normal mood - Skin Skin exam: Present: dry, intact, normal color, warm Additional comments: No endocarditis stigmata noted. Infectious Disease CN: Results - Labs CBC & Chem 7: 07/10/18 09:25 07/10/18 09:25 Cultures: Cultures 07/08/18 14:11 Blood Culture - Preliminary Peripheral Venipuncture Gram Positive Cocci 07/08/18 14:11 Blood Culture - Preliminary Peripheral Venipuncture Gram Positive Cocci 07/09/18 07:55 Blood Culture - Preliminary Peripheral Venipuncture Gram Positive Cocci 07/09/18 08:00 Blood Culture - Preliminary Peripheral Venipuncture Gram Positive Cocci 07/08/18 18:45 Legionella Antigen - Final Urine,Clean Catch Streptococcus pneumoniae Antigen (M - Final 07/08/18 14:49 Influenza Types A,B Antigen (MANI) - Final Nasopharyngeal Serology: Serology 07/09/18 07/08/18 07/08/18 Range/Units 08:00 18:52 14:14 Urine Color Dark Yellow (Yellow) Urine Clarity Clear (Clear) Urine pH 6.0 (5.0-8.0) pH Units Ur Specific [place] > 1.030 H (1.010-1.025) Urine Protein 30 H (Neg-Trace) mg/dL Urine Glucose (UA) Normal (Normal) mg/dL Urine Ketones 15 H (Negative) mg/dL Urine Blood Small H (Negative) Urine Nitrite Negative (Negative) Urine Bilirubin Moderate H (Negative) Urine Urobilinogen 4.0 H (Normal) mg/dL Ur Leukocyte Esterase Trace H (Negative) Urine Microscopic RBC 0-3 (0-3) per hpf Urine Microscopic WBC 5-15 H (0-3) per hpf Ur Squamous Epith Cells Many H (None-Few) per lpf Urine Bacteria Few (None-Few) per hpf Hyaline Casts None Seen (None-Few) per lpf Ur Culture Indicated? NO. A (NO) A. baumannii (PCR) Not Detected (Not Detect) Chlamy pneumoniae PCR Not Detected (Not Detect) Adenovirus (PCR) Not Detected (Not Detect) B. pertussis DNA (PCR) Not Detected (Not Detect) B.parapertussis DNA PCR Not Detected (Not Detect) Monse albicans (PCR) Not Detected (Not Detect) C. glabrata (PCR) Not Detected (Not Detect) C. krusei (PCR) Not Detected (Not Detect) C. parapsilosis (PCR) Not Detected (Not Detect) C. tropicalis (PCR) Not Detected (Not Detect) Coronavirus OC43 (PCR) Not Detected (Not Detect) Coronavirus HKU1 (PCR) Not Detected (Not Detect) Coronavirus 229E (PCR) Not Detected (Not Detect) Coronavirus NL63 (PCR) Not Detected (Not Detect) Enterobacteriac sp PCR Not Detected (Not Detect) E. cloacae complex PCR Not Detected (Not Detect) Enterococcus sp PCR Not Detected (Not Detect) E. coli (PCR) Not Detected (Not Detect) H. influenzae (PCR) Not Detected (Not Detect) Human Metapneumovir PCR Not Detected (Not Detect) Influenza A (H1) PCR Not Detected (Not Detect) Influ A (H1N1/09) PCR Not Detected (Not Detect) Influenza A (H3) PCR Not Detected (Not Detect) Influenza A Untype (PCR) Not Detected (Not Detect) Influenza Type B (PCR) Not Detected (Not Detect) Klebsiella oxytoca PCR Not Detected (Not Detect) Klebsiella pneumoniae Not Detected (Not Detect) List. monocytogenes PCR Not Detected (Not Detect) M.pneumoniae DNA (PCR) Not Detected (Not Detect) N. meningitidis (PCR) Not Detected (Not Detect) Parainfluenza 1 (PCR) Not Detected (Not Detect) Parainfluenza 2 (PCR) Not Detected (Not Detect) Parainfluenza 3 (PCR) Not Detected (Not Detect) Parainfluenza 4 (PCR) Not Detected (Not Detect) Proteus species (PCR) Not Detected (Not Detect) RSV (PCR) Not Detected (Not Detect) Entero/Rhino (PCR) Not Detected (Not Detect) Serratia marcescens PCR Not Detected (Not Detect) Staphylococcus sp PCR DETECTED A (Not Detect) Staph aureus (PCR) DETECTED A (Not Detect) mecA-Methicil Res Gene DETECTED A (Not Detect) Streptococcus sp PCR Not Detected (Not Detect) Group A Strep DNA Not Detected (Not Detect) Group B Strep (PCR) Not Detected (Not Detect) Strep pneumoniae (PCR) Not Detected (Not Detect) P. aeruginosa (PCR) Not Detected (Not Detect) Pravin/B-Vanco Res Genes N/A (Not Detect) KPC (blaKPC) Detect PCR N/A (Not Detect) 07/08/18 Range/Units 14:11 Urine Color (Yellow) Urine Clarity (Clear) Urine pH (5.0-8.0) pH Units Ur Specific [place] (1.010-1.025) Urine Protein (Neg-Trace) mg/dL Urine Glucose (UA) (Normal) mg/dL Urine Ketones (Negative) mg/dL Urine Blood (Negative) Urine Nitrite (Negative) Urine Bilirubin (Negative) Urine Urobilinogen (Normal) mg/dL Ur Leukocyte Esterase (Negative) Urine Microscopic RBC (0-3) per hpf Urine Microscopic WBC (0-3) per hpf Ur Squamous Epith Cells (None-Few) per lpf Urine Bacteria (None-Few) per hpf Hyaline Casts (None-Few) per lpf Ur Culture Indicated? (NO) A. baumannii (PCR) Not Detected (Not Detect) Chlamy pneumoniae PCR (Not Detect) Adenovirus (PCR) (Not Detect) B. pertussis DNA (PCR) (Not Detect) B.parapertussis DNA PCR (Not Detect) Monse albicans (PCR) Not Detected (Not Detect) C. glabrata (PCR) Not Detected (Not Detect) C. krusei (PCR) Not Detected (Not Detect) C. parapsilosis (PCR) Not Detected (Not Detect) C. tropicalis (PCR) Not Detected (Not Detect) Coronavirus OC43 (PCR) (Not Detect) Coronavirus HKU1 (PCR) (Not Detect) Coronavirus 229E (PCR) (Not Detect) Coronavirus NL63 (PCR) (Not Detect) Enterobacteriac sp PCR Not Detected (Not Detect) E. cloacae complex PCR Not Detected (Not Detect) Enterococcus sp PCR Not Detected (Not Detect) E. coli (PCR) Not Detected (Not Detect) H. influenzae (PCR) Not Detected (Not Detect) Human Metapneumovir PCR (Not Detect) Influenza A (H1) PCR (Not Detect) Influ A (H1N1/09) PCR (Not Detect) Influenza A (H3) PCR (Not Detect) Influenza A Untype (PCR) (Not Detect) Influenza Type B (PCR) (Not Detect) Klebsiella oxytoca PCR Not Detected (Not Detect) Klebsiella pneumoniae Not Detected (Not Detect) List. monocytogenes PCR Not Detected (Not Detect) M.pneumoniae DNA (PCR) (Not Detect) N. meningitidis (PCR) Not Detected (Not Detect) Parainfluenza 1 (PCR) (Not Detect) Parainfluenza 2 (PCR) (Not Detect) Parainfluenza 3 (PCR) (Not Detect) Parainfluenza 4 (PCR) (Not Detect) Proteus species (PCR) Not Detected (Not Detect) RSV (PCR) (Not Detect) Entero/Rhino (PCR) (Not Detect) Serratia marcescens PCR Not Detected (Not Detect) Staphylococcus sp PCR DETECTED A (Not Detect) Staph aureus (PCR) DETECTED A (Not Detect) mecA-Methicil Res Gene DETECTED A (Not Detect) Streptococcus sp PCR Not Detected (Not Detect) Group A Strep DNA Not Detected (Not Detect) Group B Strep (PCR) Not Detected (Not Detect) Strep pneumoniae (PCR) Not Detected (Not Detect) P. aeruginosa (PCR) Not Detected (Not Detect) Pravin/B-Vanco Res Genes N/A (Not Detect) KPC (blaKPC) Detect PCR N/A (Not Detect) Consult Discharge Plan - Plan Referrals: NONE,PCP [Primary Care Provider] - - Attending Attestation I examined this patient and my medical decision-making was reviewed with the Resident Physician. I agree with the documented findings, disposition and treatment plan as described except to the extent set forth below. This is an addendum to original report dictated by Aline Cui CNP. Please refer to Aline's note for full detail. Patient is a 37-year-old gentleman with history of hepatitis C for a couple years and history of IV drug use came and not feeling well with the flulike symptoms. Patient was noted to have MRSA bacteremia 2 out of 2 sets are 2017 and 2 out of 2 sets positive on 07/09/2018 all possible gram-positive cocci and the PCR picked up staph species that is staph aureus with Mec A gene. An echocardiogram transthoracic so far was negative but a BOB is pending. CT head reviewed. Chest x-ray revealing multifocal lung consolidation in the right middle lobe and left lower lobe concerning for pneumonia. Assessment and plan: MRSA bacteremia for cultures positive so far secondary to use Multifocal pneumonia likely secondary to septic emboli but were not sure Hepatitis C IV drug abuse Recommend continuing vancomycin with goal vancomycin trough around 15-20 Repeat blood cultures at 48 hours to make sure the bacteremia cleared Await BOB Check respiratory infectious panel and strep pneumo antigen CT chest If CT is negative DC levofloxacin
[2018-07-10] MEDS: *HR* LORazepam 1 MG TABLET PO PRN ×2 (15:56→20:21)
[2018-07-10 16:05] LABS: HIV-1&2 Antibody & p24 Ag Nonreactive (Nonreactive); Hepatitis B Surface Antigen Nonreactive (Nonreactive)
[2018-07-10 16:06] LABS: Hepatitis B Surface Antibody 109.17 mIU/mL
[2018-07-11] MEDS: Ipratropium/Albuterol Neb 3 ML IH SCH ×3 (04:00→11:30)
[2018-07-11] MEDS: *HR* LORazepam 1 MG TABLET PO PRN (04:01)
[2018-07-11 04:29] LABS: Basophils # 0.1 K/mcL (0.0-0.2); Basophils % 0.4 %; Eosinophils # 0.3 K/mcL (0.0-0.6); Eosinophils % 1.5 %; Hematocrit 27.8 % (37.5-50.1); Hemoglobin 9.2 g/dL (12.9-16.9); Immature Granulocytes % 4.9 % (0-4); Lymphocytes # 2.8 K/mcL (0.6-4.6); Lymphocytes % 14.4 %; Mean Corpuscular HGB Conc 33.1 g/dL (31.6-35.5); Mean Corpuscular Hemoglobin 25.1 pg (28.0-33.3); Mean Corpuscular Volume 75.7 fL (83.0-100.0); Mean Platelet Volume 11.7 fL (9.4-12.4); Monocytes # 1.5 K/mcL (0.0-1.3); Monocytes % 7.5 %; Neutrophils # 13.7 K/mcL (1.6-8.9); Platelet Count 195 K/mcL (140-400); Red Blood Count 3.67 M/mcL (4.19-5.50); Red Cell Distribution Width 15.2 % (11.5-14.5); Segmented Neutrophils % 71.3 %
[2018-07-11 04:45] LABS: BUN/Creatinine Ratio 26 (6-26); Blood Urea Nitrogen 19 mg/dL (6-20); Calcium 7.7 mg/dL (8.6-10.3); Carbon Dioxide 24 mEq/L (23-29); Chloride 102 mEq/L (98-107); Glucose 105 mg/dL (70-105); Osmolality,Calculated 273 (280-300); Potassium 4.5 mEq/L (3.5-5.1); Sodium 130 mEq/L (136-145); eGFR For Non-African Americans > 60 (> 60)
[2018-07-11] MEDS: *HR* Enoxaparin 40 MG/0.4 ML SYRINGE SQ SCH (05:05)
[2018-07-11 11:04] VITALS: BP 129/90
--- NOTE | 2018-07-11 13:41 | Internal Med Progress Note ---
Hospitalist Progress Note - Encounter Date of Encounter: 07/11/18 Time of Encounter: 13:00 - Subjective Interval History: Mr. Dill is a 37 year old male with known PMH of IV drug abuse with Heroin, who is currently on Suboxone therapy however still doing IV Heroin, had last dose 4 days ago now he presented to ER with worsening SOB, Cough with expector ation from last 10 days. Pt stated he had flu like symptoms to start with later he developed with cough with greenish expectoration and shortness of breath. He was admitted in the hospital and started him on empirical abx Zosyn, Levaquin and Vancomycin. His blood cx grew MRSA and he does have septic embolic PNA. Pt states he is feeling lot better today. - Exam Vitals: Temp Pulse Resp BP Pulse Ox 98.5 F 106 17 129/90 92 07/11/18 11:01 07/11/18 11:01 07/11/18 11:32 07/11/18 11:01 07/11/18 11:32 Exam: General: Alert and oriented, resting comfortably, NAD HEENT: mucus membranes moist, PERRLA, no cervical lymphaenopathy CV: +s1, s2; no s3 or s4, no rubs, murmurs or gallops; No JVD, pulses regular Lungs: decreased breath sounds b/l Abdomen: general pain to palpation Extremities: no edema or tenderness; no joint swelling or clubbing; no osler nodes or janeway lesions noted on hands Neuro: pt awake and alert - Assessment and Plan (1) Sepsis Current Visit: Yes Status: Acute Assessment and Plan: MRSA Bacteremia from 07/08/18 Repeat blood cx from 07/09/19 still grew MRSA Blood cx from 07/11- so far no growth Cont Vancomycin IV Echo: LVEF 45%, mild global LV systolic dysf, mildly dilated RV and mild hyokenesis, moderately dilated RA, mild/moderate tricuspid regurg, mild pulm htn still suspicious of vegetations given tricuspid regurg, BOB ordered (2) Bacteremia Current Visit: Yes Status: Acute (3) Multifocal pneumonia Current Visit: Yes Status: Suspected Assessment and Plan: CT of chest showed septic embolic PNA cont Vancomcyin Duoneb (4) Acute systolic (congestive) heart failure Current Visit: Yes Status: Acute Assessment and Plan: Echo: LVEF 45%, mild global LV systolic dysf, mildly dilated RV and mild hyokenesis, moderately dilated RA, mild/moderate tricuspid regurg, mild pulm htn still suspicious of vegetations given tricuspid regurg, BOB ordered Not in exacerbation cont close monitoring If BP allows will add BB and ACEI (5) Elevated troponin Current Visit: Yes Status: Acute Assessment and Plan: Due to demand ischemia trended down to normal (6) IV drug abuse Current Visit: Yes Status: Chronic Assessment and Plan: Counseled to quit drugs Cont Suboxone Cont CIWA protocol Cont Ativan PRN for withdrawal symptoms (7) Tobacco dependence Current Visit: Yes Status: Chronic Assessment and Plan: Counseled to quit smoking placed on nicotine patch - Time Spent with Patient Total time spent is greater than 50% in coordination of care (as documented) at patient's floor/unit and/or counseling patient: Internal Medicine: Result - Labs CBC & Chem 7: 07/11/18 03:57 07/11/18 03:57 Labs: Short CBC 07/11/18 Range/Units 03:57 WBC 19.3 H (4.3-11.1) K/mcL Hgb 9.2 L (12.9-16.9) g/dL Hct 27.8 L (37.5-50.1) % Plt Count 195 (140-400) K/mcL Neutrophils # 13.7 H (1.6-8.9) K/mcL BMP 07/11/18 03:57 Sodium 130 L Potassium 4.5 Chloride 102 Carbon Dioxide 24 BUN 19 Creatinine 0.72 Glucose 105 Calcium 7.7 L - Impressions Impressions Chest CTA 07/10/18 11:32 IMPRESSION: 1. Multiple ill-defined lung nodules most cavitated indicating septic emboli. Endocarditis should be considered. 2. Moderate bilateral pleural effusions and lower lobe atelectatic changes. 3. Mild right hilar and mediastinal adenopathy. 4. No evidence of acute pulmonary embolism. 5. Splenomegaly with the spleen measuring up to 15 cm. 6. Cardiomegaly and mild pericardial effusion. RECOMMENDATIONS: Echocardiogram to look for cardiac vegetations. D/ / 07/10/2018 14:04:06 Jen Conde MD / eric Interpreting Provider: Jen Conde MD Consult Discharge Plan - Plan Referrals: NONE,PCP [Primary Care Provider] - (1) Sepsis Qualifiers: Sepsis type: sepsis due to unspecified organism Qualified Code(s): A41.9 - Sepsis, unspecified organism
[2018-07-11] MEDS ORDERED: Aminoglycoside Consult 1 EACH MC ONE (15:05)
--- NOTE | 2018-07-11 18:13 | Discharge Summary ---
- NOTES TO OUTPATIENT PROVIDER Notes to Outpatient Provider: left AMA Orders not resulted at time of discharge: Pending orders 07/08/18 14:11 Culture,Blood [BC] Stat 07/08/18 18:06 Culture,Sputum with Gram Stain [RM] Routine 07/09/18 07:55 Culture,Blood [BC] Routine 07/09/18 08:00 Culture,Blood [BC] Routine 07/10/18 14:45 Hepatitis B Core Ab Total Routine 07/11/18 03:57 Culture,Blood [BC] AM 0400 Date of Encounter: 07/11/18 Time of Encounter: 15:00 - Discharge Diagnosis (1) Sepsis Priority: Primary Status: Acute Qualifiers: Sepsis type: sepsis due to unspecified organism Qualified Code(s): A41.9 - Sepsis, unspecified organism (2) Bacteremia Priority: Primary Status: Acute (3) Multifocal pneumonia Priority: Primary Status: Suspected (4) Acute systolic (congestive) heart failure Priority: Secondary Status: Acute (5) Elevated troponin Priority: Secondary Status: Acute (6) IV drug abuse Priority: Secondary Status: Chronic (7) Tobacco dependence Priority: Secondary Status: Chronic Hospital course: Mr. Dill is a 37 year old male with known PMH of IV drug abuse with Heroin, who is currently on Suboxone therapy however still doing IV Heroin, had last dose 4 days ago now he presented to ER with worsening SOB, Cough with expectoration from last 10 days. Pt stated he had flu like symptoms to start with later he developed with cough with greenish expectoration and shortness of breath. He was admitted in the hospital and started him on empirical abx Zosyn, Levaquin and Vancomycin. His blood cx grew MRSA and he does have septic embolic PNA. His 2 D Echo showed LVEF 45%, mild global LV systolic dysf, mildly dilated RV and mild hyokenesis, moderately dilated RA, mild/moderate tricuspid regurg, mild pulm htn, still suspicious of vegetations given tricuspid regurg, BOB ordered. His repeat blood cx from this morning so far no growth. Apparently pt walked out the hospital with out telling any staff. Pt left AMA. I tried to reach out to pt's cell @ [phone]- No answer, his sister Kendra Dill @ [phone], not in service. Pt did walk out of the hospital with an IV access. Reached out hospital security to track down the pt. - Time Spent with Patient Total time spent providing and/or coordinating discharge services: - Discharge Medications Home Medications: Acetaminophen [Pain Relief] 500 mg PO BID PRN 07/08/18 [History] Buprenorphine HCl/Naloxone HCl [Buprenorphin-Naloxon 8-2 mg Sl] 1 tab PO BID 07/08/18 [History] Ibuprofen 800 mg PO TID PRN 07/08/18 [History] Allergies/Adverse Reactions: Allergy/AdvReac Type Severity Reaction Status Date / Time codeine Allergy Rash Verified 07/08/18 13:30 tramadol Allergy Rash Verified 07/08/18 13:30 Date of admission: 07/08/18 18:19 Primary care physician: PCP NONE Consults: 07/08/18 15:05 Consult to PICC team [Consult to Invasive Line Access Team] [CONS] Stat Reason for Consult: difficult access Line Type: PICC 07/08/18 17:08 Consult to Invasive Line Access Team [CONS] Routine Reason for Consult: limited vascular access with need for mutiple IV medications Line Type: EPIV 07/10/18 11:35 Consult to Infectious Diseases [CONS] Routine Consulting Provider: [facility] Reason for Consult: suspected endocarditis, MRSA postive, abnormal TTE, OBB pending Call Completed: No - Constitutional Vitals: Temp Pulse Resp BP Pulse Ox 98.5 F 106 17 129/90 92 07/11/18 11:01 07/11/18 11:01 07/11/18 11:32 07/11/18 11:01 07/11/18 11:32 General appearance: Present: cooperative, A&O X 3, answers questions appropriately Exam: General: Alert and oriented, resting comfortably, NAD HEENT: mucus membranes moist, PERRLA, no cervical lymphaenopathy CV: +s1, s2; no s3 or s4, no rubs, murmurs or gallops; No JVD, pulses regular Lungs: decreased breath sounds b/l Abdomen: general pain to palpation Extremities: no edema or tenderness; no joint swelling or clubbing; no osler nodes or janeway lesions noted on hands Neuro: pt awake and alert - Patient Status Disposition: Left Against Medical Advice Condition: Fair - Discharge Instructions Follow Up With: NONE,PCP [Primary Care Provider] - Forms: ED Satisfaction Letter
[2018-07-12 01:50] LABS: Acinetobacter baumannii by PCR Not Detected (Not Detect); Candida albicans by PCR Not Detected (Not Detect); Candida glabrata by PCR Not Detected (Not Detect); Candida krusei by PCR Not Detected (Not Detect); Candida parapsilosis by PCR Not Detected (Not Detect); Candida tropicalis by PCR Not Detected (Not Detect); Enterobacter cloacae Cmplx PCR Not Detected (Not Detect); Enterobacteriaceae by PCR Not Detected (Not Detect); Enterococcus by PCR Not Detected (Not Detect); Escherichia coli by PCR Not Detected (Not Detect); Klebsiella oxytoca by PCR Not Detected (Not Detect); Klebsiella pneumoniae by PCR Not Detected (Not Detect); Proteus by PCR Not Detected (Not Detect); Pseudomonas aeruginosa by PCR Not Detected (Not Detect); Serratia marcescens by PCR Not Detected (Not Detect); Staphylococcus aureus by PCR DETECTED (Not Detect); Staphylococcus by PCR DETECTED (Not Detect); Streptococcus agalactiae(B)PCR Not Detected (Not Detect); Streptococcus by PCR Not Detected (Not Detect); Streptococcus pneumoniae PCR Not Detected (Not Detect); Streptococcus pyogenes (A) PCR Not Detected (Not Detect); blaKPC Carbapenem-Resist Gene Not Detected (Not Detect); mecA Methicillin-Resist Gene DETECTED (Not Detect); vanA/B Vancomycin-Resist Genes Not Detected (Not Detect)
--- NOTE | 2018-07-12 01:59 | Event Note ---
Date of Encounter: 07/12/18 Time of Encounter: 01:57 I received a call form lab/microbiology stating patient had + blood culture for MRSA. He left AMA on 07/11/18. I called the phone number listed on his contact information and received voicemail. I left message for him advising him to go to ER here or nearest ER as soon as possible.
== END 2018-07-11 15:06 | disposition left against medical advice (07) | DRG 720 ==
LOC: EMEROOARM 13:19 → 2NENU 13:19
PROVIDERS: ADMIT Internal Medicine; ATTEND Internal Medicine

== ENCOUNTER 2018-07-15 15:06 | Inpatient (IN) ==
[2018-07-15] MEDS ORDERED: 0.9 % Sodium Chloride 1,000 ML IVC ONE ×2 (15:19→15:33)
[2018-07-15] MEDS ORDERED: Piperacillin/Tazobactam 3.375 GM in 0.9 % Sodium Chloride Mini Bag 100 ML IVPB ONE (15:31)
[2018-07-15] MEDS ORDERED: Ketorolac 15 MG/ML VIAL IVP ONE (15:32)
--- NOTE | 2018-07-15 15:33 | Emergency Department Note ---
Disposition Clinical Impression: Substance abuse, Sepsis due to pneumonia, Bacteremia Anemia Qualifiers: Anemia type: unspecified type Qualified Code(s): D64.9 - Anemia, unspecified Disposition: Admitted As Inpatient Condition: Fair Referrals: NONE,PCP [Primary Care Provider] - Forms: ED Satisfaction Letter Time of Disposition: 15:35 General Adult HPI - General Chief complaint: ED Shortness of Breath/Dyspnea Stated complaint: Fever Time Seen by Provider: 07/15/18 15:10 Source: patient, EMS Mode of arrival: ambulatory Limitations: no limitations Nursing Notes Reviewed: Yes Vital Signs Reviewed: Yes - History of Present Illness HPI Narrative: 37-year-old male with history of IV drug use with heroin, tobacco use presents for evaluation of fever. Patient was recently diagnosed with pneumonia and bacteremia within the last week. Had a three-day hospital course and left AMA. Patient presents for recurrent symptoms a fever and difficulty breathing. Reports a nonproductive cough. Does report some chest pain. States that he used heroin yesterday. Patient denies any abdominal pain. No nausea or vomiting. Denies history of heart failure or ACS. Pain Scale: 7 - Related Data Home Medications Medication Instructions Recorded Confirmed Acetaminophen [Pain Relief] 500 mg PO BID PRN 07/08/18 07/15/18 Buprenorphine HCl/Naloxone HCl 1 tab PO BID 07/08/18 07/15/18 [Buprenorphin-Naloxon 8-2 mg Sl] Ibuprofen 800 mg PO TID PRN 07/08/18 07/15/18 Fluticasone Propionate [Aller-Yves] 1 spr NS DAILY 07/15/18 07/15/18 Allergies Allergy/AdvReac Type Severity Reaction Status Date / Time codeine Allergy Rash Verified 07/08/18 13:30 tramadol Allergy Rash Verified 07/08/18 13:30 All systems ED: reviewed and negative except as stated. Constitutional: Reports: fever Cardiovascular: Reports: chest pain Respiratory: Reports: cough, dyspnea. Denies: sputum production Gastrointestinal: Denies: abdominal pain, nausea, vomiting Past Medical History - Past Medical History Attestation: Yes The following information was validated with the patient. Source: patient Medical history: Reports: hepatitis Surgical history: Reports: no surgical history Psychiatric history: Reports: no psych history - Social History Smoking Status: Current every day smoker Smokeless Tobacco Status: No Alcohol use: Reports: none Drug use: Reports: opiates, IV Drug Use Physical Exam - General Limitations: no limitations General appearance: alert, in no apparent distress - Head Head exam: atraumatic, normocephalic, normal inspection - Eye Eye exam: Present: normal appearance, PERRL, EOMI. Absent: miosis, mydriasis - ENT ENT exam: normal exam, mucous membranes moist, other (Poor dentition) - Neck Neck exam: Present: normal inspection, trachea midline - Chest Chest inspection: Present: normal inspection. Absent: symmetric chest wall rise - Respiratory Respiratory exam: Present: prolonged expiratory phase, other (Diminished thr oughout). Absent: respiratory distress - Cardiovascular Cardiovascular exam: Present: regular rate, normal rhythm. Absent: systolic murmur - Abdominal Exam Abdominal exam: Present: soft, Non-Tender - Extremities Exam Extremities exam: Present: normal inspection. Absent: pedal edema - Expanded Lower Extremity Exam Neurovascular/Tendon exam: Present: normal capillary refill. Absent: pulse deficit, motor deficit, sensory deficit - Back Exam Back exam: Present: normal inspection - Neurological Exam Neurological exam: Present: alert, oriented X3, CN II-XII intact - Skin Skin exam: Present: warm, dry, intact, normal color Course Course Narrative: Patient presents for concerns of sepsis pneumonia. Patient does meet SIRS criteria. Patient's records reviewed and does show recent hospitalization with multifocal pneumonia in the setting of bacteremia. Patient's an IV drug user. Patient did have a transthoracic echo which showed no vegetation. Patient did have an EF of 45%. Patient will be started on vancomycin as well as Zosyn given his recent hospitalization. Patient will be given IV fluid bolus. Basic labs disposition admission to the hospitalist service. - Reevaluation(s) Reevaluation #1: Patient seen and examined. Patient's updated on plan of care. Patient's agreeable with admission with antibiotics and supportive care. Time: 16:35 Vital Signs Temperature 102.7 F H 07/15/18 15:07 Pulse Rate 112 07/15/18 15:07 Respiratory Rate 18 07/15/18 15:07 Blood Pressure 143/89 07/15/18 15:07 O2 Sat by Pulse Oximetry 96 07/15/18 15:07 Temperature 102.7 F H 07/15/18 15:07 Pulse Rate 112 07/15/18 15:07 Respiratory Rate 18 07/15/18 15:07 Blood Pressure 143/89 10/24/18 15:07 O2 Sat by Pulse Oximetry 96 07/15/18 15:07 Oxygen Delivery Oxygen Delivery Room Air Medical Decision Making - MDM Narrative Medical decision making narrative: Patient presents for evaluation of fever. Patient does have recent hospitalization within the past week with three-day hospital course were he had pneumonia, sepsis and bacteremia. Patient left AMA because he said they were not doing anything form. Patient does admit to using heroin within the past 24 hours. Patient's ED evaluations consistent with sepsis pneumonia. Patient does have a significant leukocytosis. Patient also has anemia which appears chronic in nature. Patient's lactate is normal. Patient was resuscitated with 2 L of crystalloid. Patient does not meet criteria for the 30 mL/kg IV fluid bolus. Patient does not meet severe sepsis or septic shock. Patient had a recent echo which showed no evidence of vegetations with EF of 45%. Patient would likely need a BOB as well as continued resuscitation with antibiotics. 3 sets of blood cultures were obtained. - Lab Data Lab results reviewed: Yes I reviewed the patient's lab results. Result diagrams: 07/15/18 15:34 07/15/18 15:34 Lab Results 07/15/18 07/15/18 07/15/18 Range/Units 15:34 15:34 15:34 WBC 24.6 H (4.3-11.1) K/mcL RBC 3.49 L (4.19-5.50) M/mcL Hgb 8.8 L (12.9-16.9) g/dL Hct 27.4 L (37.5-50.1) % MCV 78.5 L (83.0-100.0) fL MCH 25.2 L (28.0-33.3) pg MCHC 32.1 (31.6-35.5) g/dL RDW 16.3 H (11.5-14.5) % Plt Count 284 (140-400) K/mcL MPV 10.2 (9.4-12.4) fL Immature Gran % 1.2 (0-4) % Seg Neutrophils % 91.3 % Lymphocytes % 4.8 % Monocytes % 2.5 % Eosinophils % 0.1 % Basophils % 0.1 % Neutrophils # 22.5 H (1.6-8.9) K/mcL Lymphocytes # 1.2 (0.6-4.6) K/mcL Monocytes # 0.6 (0.0-1.3) K/mcL Eosinophils # 0.0 (0.0-0.6) K/mcL Basophils # 0.0 (0.0-0.2) K/mcL Toxic Granulation Present A (Not Present) Platelet Estimate Normal (Normal) Anisocytosis 1+ A (Not Present) PT 15.8 H (9.4-12.1) Seconds INR 1.4 APTT 31.8 (26.0-36.0) Seconds Sodium 128 L (136-145) mEq/L Potassium 3.5 (3.5-5.1) mEq/L Chloride 96 L (98-107) mEq/L Carbon Dioxide 25 (23-29) mEq/L BUN 16 (6-20) mg/dL Creatinine 0.78 (0.70-1.30) mg/dL Est GFR ( Amer) > 60 (> 60) Est GFR (Non-Af Amer) > 60 (> 60) BUN/Creatinine Ratio 21 (6-26) Glucose 108 H (70-105) mg/dL Calculated Osmolality 268 L (280-300) Lactic Acid (0.5-2.2) mmol/L Calcium 7.5 L (8.6-10.3) mg/dL Phosphorus 3.6 (2.7-4.5) mg/dL Magnesium 1.8 (1.6-2.6) mg/dL Total Bilirubin 1.0 (0.3-1.0) mg/dL Direct Bilirubin 0.4 H (0.0-0.2) mg/dL Indirect Bilirubin 0.6 (0.0-1.2) mg/dL AST 23 (13-39) Units/L ALT 21 (7-52) Units/L Alkaline Phosphatase 92 (34-104) Units/L Troponin I < 0.03 (< 0.04) ng/mL B-Natriuretic Peptide (Less than 100) pg/mL Serum Total Protein 6.7 (6.4-8.9) g/dL Albumin 2.2 L (3.5-5.7) g/dL Globulin 4.5 H (2.4-3.5) g/dL Albumin/Globulin Ratio 0.5 L (1.1-2.2) 07/15/18 07/15/18 Range/Units 15:34 15:34 WBC (4.3-11.1) K/mcL RBC (4.19-5.50) M/mcL Hgb (12.9-16.9) g/dL Hct (37.5-50.1) % MCV (83.0-100.0) fL MCH (28.0-33.3) pg MCHC (31.6-35.5) g/dL RDW (11.5-14.5) % Plt Count (140-400) K/mcL MPV (9.4-12.4) fL Immature Gran % (0-4) % Seg Neutrophils % % Lymphocytes % % Monocytes % % Eosinophils % % Basophils % % Neutrophils # (1.6-8.9) K/mcL Lymphocytes # (0.6-4.6) K/mcL Monocytes # (0.0-1.3) K/mcL Eosinophils # (0.0-0.6) K/mcL Basophils # (0.0-0.2) K/mcL Toxic Granulation (Not Present) Platelet Estimate (Normal) Anisocytosis (Not Present) PT (9.4-12.1) Seconds INR APTT (26.0-36.0) Seconds Sodium (136-145) mEq/L Potassium (3.5-5.1) mEq/L Chloride (98-107) mEq/L Carbon Dioxide (23-29) mEq/L BUN (6-20) mg/dL Creatinine (0.70-1.30) mg/dL Est GFR ( Amer) (> 60) Est GFR (Non-Af Amer) (> 60) BUN/Creatinine Ratio (6-26) Glucose (70-105) mg/dL Calculated Osmolality (280-300) Lactic Acid 1.3 (0.5-2.2) mmol/L Calcium (8.6-10.3) mg/dL Phosphorus (2.7-4.5) mg/dL Magnesium (1.6-2.6) mg/dL Total Bilirubin (0.3-1.0) mg/dL Direct Bilirubin (0.0-0.2) mg/dL Indirect Bilirubin (0.0-1.2) mg/dL AST (13-39) Units/L ALT (7-52) Units/L Alkaline Phosphatase (34-104) Units/L Troponin I (< 0.04) ng/mL B-Natriuretic Peptide 630 H (Less than 100) pg/mL Serum Total Protein (6.4-8.9) g/dL Albumin (3.5-5.7) g/dL Globulin (2.4-3.5) g/dL Albumin/Globulin Ratio (1.1-2.2) - EKG Data EKG #1 EKG attestation: Yes I reviewed and interpreted this EKG. EKG shows normal: sinus rhythm Rate: tachycardia Rhythm: NSR [place]/QRS: right axis deviation T wave inversions noted in: v1, v2 (FLATTENED), v3 Interpretation: no acute changes, unchanged when compared to prior tracing (date), nonspecific ST-T wave changes S.B.A.R. - S.B.A.RSim Situation: Demographics Background: Presenting Complaint Assessment: Vital Signs, Course and respsone to treatment, Patient/Family Expectation Recommendation: Barrier(s) to disposition, Recommendation based on pending studies, treatments, or consults S.B.A.RSim Report Given to: Dr. Rodgers S.B.A.Rob Repor Time: 16:10 Sepsis Reassessment Note - Evaluation Current Stage of Sepsis: sepsis Possible Source of Sepsis: pulmonary - Focused Exam Date of Encounter: 07/15/18 Time of Encounter: 16:36 Vital Signs: Vital Signs Temp Pulse Resp BP Pulse Ox 07/15/18 15:07 102.7 F H 112 18 143/89 96 Respiratory Exam: Present: CTA bilaterally Cardiovascular Exam: Present: RRR Capillary Refill: < 2 seconds Peripheral Pulse Strength: 3+ normal Peripheral Pulse Location: Radial Skin Exam: normal turgor
[2018-07-15 15:51] LABS: Basophils % 0.1 %; Eosinophils % 0.1 %; Hematocrit 27.4 % (37.5-50.1); Hemoglobin 8.8 g/dL (12.9-16.9); Immature Granulocytes % 1.2 % (0-4); Lymphocytes # 1.2 K/mcL (0.6-4.6); Lymphocytes % 4.8 %; Mean Corpuscular HGB Conc 32.1 g/dL (31.6-35.5); Mean Corpuscular Hemoglobin 25.2 pg (28.0-33.3); Mean Corpuscular Volume 78.5 fL (83.0-100.0); Mean Platelet Volume 10.2 fL (9.4-12.4); Monocytes # 0.6 K/mcL (0.0-1.3); Monocytes % 2.5 %; Neutrophils # 22.5 K/mcL (1.6-8.9); Platelet Count 284 K/mcL (140-400); Red Blood Count 3.49 M/mcL (4.19-5.50); Red Cell Distribution Width 16.3 % (11.5-14.5); Segmented Neutrophils % 91.3 %
[2018-07-15 16:00] LABS: INR 1.4; Prothrombin Time 15.8 Seconds (9.4-12.1)
[2018-07-15 16:03] LABS: Activated Partial Thrombo Time 31.8 Seconds (26.0-36.0)
[2018-07-15 16:11] LABS: Anisocytosis 1+ (Not Present); Platelet Estimate Normal (Normal); Toxic Granulation Present (Not Present); Troponin I < 0.03 ng/mL (< 0.04)
[2018-07-15 16:12] LABS: Alanine Aminotransferase 21 Units/L (7-52); Albumin 2.2 g/dL (3.5-5.7); Albumin/Globulin Ratio 0.5 (1.1-2.2); Alkaline Phosphatase 92 Units/L (34-104); Aspartate Amino Transferase 23 Units/L (13-39); BUN/Creatinine Ratio 21 (6-26); Bilirubin,Direct 0.4 mg/dL (0.0-0.2); Bilirubin,Indirect 0.6 mg/dL (0.0-1.2); Blood Urea Nitrogen 16 mg/dL (6-20); Calcium 7.5 mg/dL (8.6-10.3); Carbon Dioxide 25 mEq/L (23-29); Chloride 96 mEq/L (98-107); Globulin 4.5 g/dL (2.4-3.5); Glucose 108 mg/dL (70-105); Magnesium 1.8 mg/dL (1.6-2.6); Osmolality,Calculated 268 (280-300); Phosphorous 3.6 mg/dL (2.7-4.5); Potassium 3.5 mEq/L (3.5-5.1); Sodium 128 mEq/L (136-145); Total Protein 6.7 g/dL (6.4-8.9); eGFR For Non-African Americans > 60 (> 60)
--- NOTE | 2018-07-15 16:50 | Emergency Department Note ---
Disposition Clinical Impression: Substance abuse, Sepsis due to pneumonia, Bacteremia Anemia Qualifiers: Anemia type: unspecified type Qualified Code(s): D64.9 - Anemia, unspecified Disposition: Admitted As Inpatient Condition: Fair Referrals: NONE,PCP [Primary Care Provider] - Forms: ED Satisfaction Letter General Adult HPI - General Chief complaint: ED Shortness of Breath/Dyspnea Stated complaint: Fever Time Seen by Provider: 07/15/18 15:10 Source: patient, EMS Mode of arrival: ambulatory Limitations: no limitations - History of Present Illness Pain Scale: 7 - Related Data Home Medications Medication Instructions Recorded Confirmed Acetaminophen [Pain Relief] 500 mg PO BID PRN 07/08/18 07/15/18 Buprenorphine HCl/Naloxone HCl 1 tab PO BID 07/08/18 07/15/18 [Buprenorphin-Naloxon 8-2 mg Sl] Ibuprofen 800 mg PO TID PRN 07/08/18 07/15/18 Fluticasone Propionate [Aller-Yves] 1 spr NS DAILY 07/15/18 07/15/18 Allergies Allergy/AdvReac Type Severity Reaction Status Date / Time codeine Allergy Rash Verified 07/08/18 13:30 tramadol Allergy Rash Verified 07/08/18 13:30 Constitutional: Reports: fever Cardiovascular: Reports: chest pain Respiratory: Reports: cough, dyspnea. Denies: sputum production Gastrointestinal: Denies: abdominal pain, nausea, vomiting Past Medical History - Past Medical History Medical history: Reports: hepatitis Surgical history: Reports: no surgical history Psychiatric history: Reports: no psych history - Social History Smoking Status: Current every day smoker Smokeless Tobacco Status: No Alcohol use: Reports: none Drug use: Reports: opiates, IV Drug Use Physical Exam - General Limitations: no limitations General appearance: alert, in no apparent distress Course Vital Signs Temperature 102.7 F H 07/15/18 15:07 Pulse Rate 112 07/15/18 15:07 Respiratory Rate 18 07/15/18 15:07 Blood Pressure 143/89 07/15/18 15:07 O2 Sat by Pulse Oximetry 96 07/15/18 15:07 Temperature 102.7 F H 07/15/18 15:07 Pulse Rate 126 07/15/18 16:50 Respiratory Rate 20 07/15/18 16:50 Blood Pressure 128/82 07/15/18 16:50 O2 Sat by Pulse Oximetry 97 07/15/18 16:50 Oxygen Delivery Oxygen Delivery Room Air Medical Decision Making - Lab Data Result diagrams: 07/15/18 15:34 07/15/18 15:34 Lab Results 07/15/18 07/15/18 07/15/18 Range/Units 15:34 15:34 15:34 WBC 24.6 H (4.3-11.1) K/mcL RBC 3.49 L (4.19-5.50) M/mcL Hgb 8.8 L (12.9-16.9) g/dL Hct 27.4 L (37.5-50.1) % MCV 78.5 L (83.0-100.0) fL MCH 25.2 L (28.0-33.3) pg MCHC 32.1 (31.6-35.5) g/dL RDW 16.3 H (11.5-14.5) % Plt Count 284 (140-400) K/mcL MPV 10.2 (9.4-12.4) fL Immature Gran % 1.2 (0-4) % Seg Neutrophils % 91.3 % Lymphocytes % 4.8 % Monocytes % 2.5 % Eosinophils % 0.1 % Basophils % 0.1 % Neutrophils # 22.5 H (1.6-8.9) K/mcL Lymphocytes # 1.2 (0.6-4.6) K/mcL Monocytes # 0.6 (0.0-1.3) K/mcL Eosinophils # 0.0 (0.0-0.6) K/mcL Basophils # 0.0 (0.0-0.2) K/mcL Toxic Granulation Present A (Not Present) Platelet Estimate Normal (Normal) Anisocytosis 1+ A (Not Present) PT 15.8 H (9.4-12.1) Seconds INR 1.4 APTT 31.8 (26.0-36.0) Seconds Sodium 128 L (136-145) mEq/L Potassium 3.5 (3.5-5.1) mEq/L Chloride 96 L (98-107) mEq/L Carbon Dioxide 25 (23-29) mEq/L BUN 16 (6-20) mg/dL Creatinine 0.78 (0.70-1.30) mg/dL Est GFR ( Amer) > 60 (> 60) Est GFR (Non-Af Amer) > 60 (> 60) BUN/Creatinine Ratio 21 (6-26) Glucose 108 H (70-105) mg/dL Calculated Osmolality 268 L (280-300) Lactic Acid (0.5-2.2) mmol/L Calcium 7.5 L (8.6-10.3) mg/dL Phosphorus 3.6 (2.7-4.5) mg/dL Magnesium 1.8 (1.6-2.6) mg/dL Total Bilirubin 1.0 (0.3-1.0) mg/dL Direct Bilirubin 0.4 H (0.0-0.2) mg/dL Indirect Bilirubin 0.6 (0.0-1.2) mg/dL AST 23 (13-39) Units/L ALT 21 (7-52) Units/L Alkaline Phosphatase 92 (34-104) Units/L Troponin I < 0.03 (< 0.04) ng/mL B-Natriuretic Peptide (Less than 100) pg/mL Serum Total Protein 6.7 (6.4-8.9) g/dL Albumin 2.2 L (3.5-5.7) g/dL Globulin 4.5 H (2.4-3.5) g/dL Albumin/Globulin Ratio 0.5 L (1.1-2.2) 07/15/18 07/15/18 Range/Units 15:34 15:34 WBC (4.3-11.1) K/mcL RBC (4.19-5.50) M/mcL Hgb (12.9-16.9) g/dL Hct (37.5-50.1) % MCV (83.0-100.0) fL MCH (28.0-33.3) pg MCHC (31.6-35.5) g/dL RDW (11.5-14.5) % Plt Count (140-400) K/mcL MPV (9.4-12.4) fL Immature Gran % (0-4) % Seg Neutrophils % % Lymphocytes % % Monocytes % % Eosinophils % % Basophils % % Neutrophils # (1.6-8.9) K/mcL Lymphocytes # (0.6-4.6) K/mcL Monocytes # (0.0-1.3) K/mcL Eosinophils # (0.0-0.6) K/mcL Basophils # (0.0-0.2) K/mcL Toxic Granulation (Not Present) Platelet Estimate (Normal) Anisocytosis (Not Present) PT (9.4-12.1) Seconds INR APTT (26.0-36.0) Seconds Sodium (136-145) mEq/L Potassium (3.5-5.1) mEq/L Chloride (98-107) mEq/L Carbon Dioxide (23-29) mEq/L BUN (6-20) mg/dL Creatinine (0.70-1.30) mg/dL Est GFR ( Amer) (> 60) Est GFR (Non-Af Amer) (> 60) BUN/Creatinine Ratio (6-26) Glucose (70-105) mg/dL Calculated Osmolality (280-300) Lactic Acid 1.3 (0.5-2.2) mmol/L Calcium (8.6-10.3) mg/dL Phosphorus (2.7-4.5) mg/dL Magnesium (1.6-2.6) mg/dL Total Bilirubin (0.3-1.0) mg/dL Direct Bilirubin (0.0-0.2) mg/dL Indirect Bilirubin (0.0-1.2) mg/dL AST (13-39) Units/L ALT (7-52) Units/L Alkaline Phosphatase (34-104) Units/L Troponin I (< 0.04) ng/mL B-Natriuretic Peptide 630 H (Less than 100) pg/mL Serum Total Protein (6.4-8.9) g/dL Albumin (3.5-5.7) g/dL Globulin (2.4-3.5) g/dL Albumin/Globulin Ratio (1.1-2.2) Attestation Statement - Attestation Attestation: I examined this patient and my medical decision-making was reviewed with the Resident Physician. I agree with the documented findings, disposition and treatment plan as described except to the extent set forth below. 37 year old male nel has a bounce back from leaving the hospital AM for sepsis admission seconday to [facility]. He has SIRS alert again and is in severe sepsis without shock at his time WE will start IV ABX and re-admit.
[2018-07-15] MEDS ORDERED: Naloxone 0.4 MG/ML INJ IVP PRN (17:03)
--- NOTE | 2018-07-15 17:25 | Internal Med History&Physical ---
Addendum entered and electronically signed by Donny Smith 07/15/18 17:56: Added Levaquin 750mg PO daily. Original Note: <LuisDonny S - Last Filed: 07/15/18 17:10> Date of Encounter: 07/15/18 Time of Encounter: 17:10 Internal Medicine - H&P: HPI Chief complaint: fever Admitted From: Home Plans for Post Hospital Care: Home History of present illness: Mr. Dill is a 37 year old male with a PMH of IVDU on suboxone and hepatitis C presents with the cc of fevers. He last used yesterday in the right arm via shooting up. He presents to the ER with continuation of his s/s from his last visit on 07/08. He c/o fevers, SOB, cough. He has chest pain that is worse with inspiration and abdominal pain. He has body aches as well. T max of 103* as per the thermometer the pt sister used. During his last visit, the pt left AMA. He was found to have a LVEF of 45% on ECHO with mild global LV systolic dysfxn. He has MRSA (+) blood cx on 07/08 and repeat were positive on the . CXR on his last visit showed multifocal lung consolidation in the right and left lower lobe concerning for pneumonia. CTA of the exam revealed multiple ill defined lung nodules indicating septic emboli. In the ER the pt was given a dose of zosyn. His initial troponin was (-) and his EKG showed sinus tacycardia. There were t wave inversions in v3, which appeared unchanged since his last visit. Past Med Surg Social Fam HX - Past Medical History Medical history: hepatitis Psychiatric history: no psych history - Past Surgical History Surgical History: no surgical history - Social History Smoking Status: Current every day smoker Smokeless Tobacco Status: No Alcohol use: none Drug use: opiates, IV Drug Use Internal Medicine - H&P: Meds Acetaminophen [Pain Relief] 500 mg PO BID PRN 07/08/18 [History] Buprenorphine HCl/Naloxone HCl [Buprenorphin-Naloxon 8-2 mg Sl] 1 tab PO BID 07/08/18 [History] Ibuprofen 800 mg PO TID PRN 07/08/18 [History] Fluticasone Propionate [Aller-Yves] 1 spr NS DAILY 07/15/18 [History] Allergy/AdvReac Type Severity Reaction Status Date / Time codeine Allergy Rash Verified 07/08/18 13:30 tramadol Allergy Rash Verified 07/08/18 13:30 All Systems PM: A 10-system review of systems was performed and is negative for pertinent findings except as documented above in the HPI. - Constitutional Constitutional: chills, fatigue, fever(s) - Cardiovascular Cardiovascular ROS IM: diaphoresis, dyspnea, dyspnea on exertion, palpitations - Respiratory Respiratory: cough, dyspnea on exertion, pain on inspiration - Gastrointestinal Gastrointestinal: abdominal pain, no cramping, no diarrhea, no nausea, no vomiting - Musculoskeletal Musculoskeletal ROS IM: muscle weakness, myalgias - Integumentary Integumentary IM: no rash, no sores - Neurological Neurological ROS: no numbness, no tingling - Psychiatric Psychiatric: no anxiety, no depression - Constitutional Vitals: Temp Pulse Resp BP Pulse Ox 102.7 F H 126 20 128/82 97 07/15/18 15:07 07/15/18 16:50 07/15/18 16:50 07/15/18 16:50 07/15/18 16:50 Exam: general - aox3, in mild distress, lethargic heent - ncat, mucus membranes moist cardio - tacycardia, no murmur, s1s2 present lungs - breath sounds diminished b/l, mild wheezing abd - tender to palpation, no rebound/guarding, no mass skin - many tattoos, no track reid, no splinter hemorrhages noted, no osler nodules Internal Med - H&P Results - Labs CBC & Chem 7: 07/15/18 15:34 07/15/18 15:34 Labs: Short CBC 07/15/18 Range/Units 15:34 WBC 24.6 H (4.3-11.1) K/mcL Hgb 8.8 L (12.9-16.9) g/dL Hct 27.4 L (37.5-50.1) % Plt Count 284 (140-400) K/mcL Neutrophils # 22.5 H (1.6-8.9) K/mcL BMP 07/15/18 15:34 Sodium 128 L Potassium 3.5 Chloride 96 L Carbon Dioxide 25 BUN 16 Creatinine 0.78 Glucose 108 H Calcium 7.5 L Cardiac Enzymes 07/15/18 Range/Units 15:34 Troponin I < 0.03 (< 0.04) ng/mL Liver Function 07/15/18 Range/Units 15:34 Total Bilirubin 1.0 (0.3-1.0) mg/dL Direct Bilirubin 0.4 H (0.0-0.2) mg/dL AST 23 (13-39) Units/L ALT 21 (7-52) Units/L Alkaline Phosphatase 92 (34-104) Units/L Albumin 2.2 L (3.5-5.7) g/dL - Impressions ITS Impressions Chest X-Ray 07/15/18 15:19 IMPRESSION: Increased patchy opacity within the lungs bilaterally, most suggestive of multifocal pneumonia, but correlate with any clinical evidence of superimposed pneumonia. Again, as stated on the previous exam, this process should be followed to resolution. D/ / Tolu Elizabeth MD / Tolu Elizabeth MD Interpreting Provider: Tolu Elizabeth MD - Assessment and plan (1) Sepsis Current Visit: No Status: Acute Assessment and plan: Most likely secondary to bacteremia and pneumonia Currently meets sepsis criteria -WBC count 24.6 - temperature 102.7 - HR 126, RR 20 On 07/08 & 07/09 - pt had blood cx positive for MRSA ECHO on 07/09 - LVEF 45%, mild global LV systolic dysfxn - mild dilated RV with mild hypokinesis - suggestion of RV volume overload - no evidence of vegetation Meeks's criteria Major criteria - blood cx (+) for MRSA Minor criteria - fever, IVDU hx, pulmonary septic emboli High suspiscion for IE Pt has no vascular phenomenom such as osler's nodes, monzon spots, janeway lesions Plan: - start vancomycin dosed per pharmacy - start zosyn - blood cx pending - monitor renal fxn, check cbc in AM - cardiology consult NPO at midnight, regular diet tonight pt will need BOB to r/o vegetations - ID consult Qualifiers: Sepsis type: sepsis due to unspecified organism Qualified Code(s): A41.9 - Sepsis, unspecified organism (2) Bacteremia Current Visit: Yes Status: Acute Assessment and plan: See plan as above for sepsis. (3) Pneumonia Current Visit: Yes Status: Acute Assessment and plan: CXR from today showed increased patchy opacity w/in the lungs bilaterally - most suggestive of mulitfocal pneumonia CT of the chest showed septic pulmonary emboli on last admission - MRSA x2 on peripheral cx (07/08) --> repeat cultures show MRSA (07/09); - Inflenza neg, legionella negative on last visit WBC count on admission 24.6 HR 126 RR 20 Plan: - plan as above for sepsis - vancomycin and zosyn as per above - duobebs q6hr silvana - prednisone PO 20mg daily Qualifiers: Pneumonia type: due to unspecified organism Laterality: unspecified laterality Lung location: unspecified part of lung Qualified Code(s): J18.9 - Pneumonia, unspecified organism (4) IV drug abuse Current Visit: No Status: Chronic Assessment and plan: Chronic - last date of use was yesterday - SW consulted (5) Tobacco dependence Current Visit: No Status: Chronic Assessment and plan: Smokes 1ppd - advised to quit (6) Hepatitis C Current Visit: No Status: Acute Assessment and plan: Chronic - needs outpatient GI workup Qualifiers: Viral hepatitis chronicity: chronic Hepatic coma status: without hepatic coma Qualified Code(s): B18.2 - Chronic viral hepatitis C (7) DVT prophylaxis Current Visit: Yes Status: Acute Assessment and plan: sq heparin - Time Spent With Patient Total time spent is greater than 50% in coordination of care (as documented) at patient's floor/unit and/or counseling patient: less than 15 minutes <Tony Whipple - Last Filed: 07/15/18 19:06> Internal Medicine - H&P: HPI History of present illness: Mr. Dill is a 37 year old male All Systems PM: A 10-system review of systems was performed and is negative for pertinent findings except as documented above in the HPI. - Constitutional Vitals: Temp Pulse Resp BP Pulse Ox 97.9 F 98 14 111/75 96 07/15/18 18:39 07/15/18 18:39 07/15/18 18:39 07/15/18 18:39 07/15/18 18:39 Internal Med - H&P Results - Labs CBC & Chem 7: 07/15/18 15:34 07/15/18 15:34 Labs: Short CBC 10/24/18 Range/Units 15:34 WBC 24.6 H (4.3-11.1) K/mcL Hgb 8.8 L (12.9-16.9) g/dL Hct 27.4 L (37.5-50.1) % Plt Count 284 (140-400) K/mcL Neutrophils # 22.5 H (1.6-8.9) K/mcL BMP 07/15/18 15:34 Sodium 128 L Potassium 3.5 Chloride 96 L Carbon Dioxide 25 BUN 16 Creatinine 0.78 Glucose 108 H Calcium 7.5 L Cardiac Enzymes 07/15/18 Range/Units 15:34 Troponin I < 0.03 (< 0.04) ng/mL Liver Function 07/15/18 Range/Units 15:34 Total Bilirubin 1.0 (0.3-1.0) mg/dL Direct Bilirubin 0.4 H (0.0-0.2) mg/dL AST 23 (13-39) Units/L ALT 21 (7-52) Units/L Alkaline Phosphatase 92 (34-104) Units/L Albumin 2.2 L (3.5-5.7) g/dL - Impressions ITS Impressions Chest X-Ray 07/15/18 15:19 IMPRESSION: Increased patchy opacity within the lungs bilaterally, most suggestive of multifocal pneumonia, but correlate with any clinical evidence of superimposed pneumonia. Again, as stated on the previous exam, this process should be followed to resolution. D/ / Tolu Elizabeth MD / Tolu Elizabeth MD Interpreting Provider: Tolu Elizabeth MD - Assessment and plan (1) Pneumonia Current Visit: Yes Status: Acute Qualifiers: Pneumonia type: due to unspecified organism Laterality: unspecified laterality Lung location: unspecified part of lung Qualified Code(s): J18.9 - Pneumonia, unspecified organism (2) Sepsis Current Visit: No Status: Acute Qualifiers: Sepsis type: sepsis due to unspecified organism Qualified Code(s): A41.9 - Sepsis, unspecified organism (3) IV drug abuse Current Visit: No Status: Chronic (4) Tobacco dependence Current Visit: No Status: Chronic (5) Bacteremia Current Visit: Yes Status: Acute (6) Hepatitis C Current Visit: No Status: Acute Qualifiers: Viral hepatitis chronicity: chronic Hepatic coma status: without hepatic coma Qualified Code(s): B18.2 - Chronic viral hepatitis C (7) DVT prophylaxis Current Visit: Yes Status: Acute - Time Spent With Patient Total time spent is greater than 50% in coordination of care (as documented) at patient's floor/unit and/or counseling patient: - Attending Attestation I examined this patient and my medical decision-making was reviewed with the Resident Physician. I agree with the documented findings, disposition and castillo tment plan as described except to the extent set forth below.
[2018-07-15] MEDS: Ipratropium/Albuterol Neb 3 ML IH SCH ×2 (18:13→22:09)
[2018-07-15] MEDS: predniSONE 20 MG TABLET PO SCH (22:30)
[2018-07-15] MEDS: levoFLOXacin 750 MG TABLET PO SCH (22:31)
[2018-07-15] MEDS: Piperacillin/Tazobactam 3.375 GM in 0.9 % Sodium Chloride Mini Bag 100 ML IVPB SCH (22:31)
[2018-07-15] MEDS: *HR* Heparin 5,000 UNIT/ML VIAL SQ SCH (22:31)
[2018-07-16] MEDS: Buprenorphine Hcl/Naloxone Hcl [Buprenorphin-Naloxon PO SCH ×3 (01:15→21:32)
[2018-07-16] MEDS: Ipratropium/Albuterol Neb 3 ML IH SCH ×4 (03:23→21:58)
[2018-07-16 04:33] LABS: Basophils % 0.1 %; Eosinophils % 0.1 %; Hematocrit 26.3 % (37.5-50.1); Hemoglobin 8.6 g/dL (12.9-16.9); Immature Granulocytes % 1.3 % (0-4); Mean Corpuscular HGB Conc 32.7 g/dL (31.6-35.5); Mean Corpuscular Hemoglobin 25.9 pg (28.0-33.3); Mean Corpuscular Volume 79.2 fL (83.0-100.0); Monocytes # 0.8 K/mcL (0.0-1.3); Monocytes % 3.2 %; Platelet Count 237 K/mcL (140-400); Red Blood Count 3.32 M/mcL (4.19-5.50); Red Cell Distribution Width 16.8 % (11.5-14.5); Segmented Neutrophils % 91.3 %
[2018-07-16 04:50] LABS: Alanine Aminotransferase 24 Units/L (7-52); Albumin 2.1 g/dL (3.5-5.7); Albumin/Globulin Ratio 0.5 (1.1-2.2); Alkaline Phosphatase 108 Units/L (34-104); Aspartate Amino Transferase 32 Units/L (13-39); BUN/Creatinine Ratio 20 (6-26); Bilirubin,Total 1.1 mg/dL (0.3-1.0); Blood Urea Nitrogen 16 mg/dL (6-20); Calcium 7.4 mg/dL (8.6-10.3); Carbon Dioxide 24 mEq/L (23-29); Chloride 102 mEq/L (98-107); Globulin 4.4 g/dL (2.4-3.5); Glucose 141 mg/dL (70-105); Magnesium 1.9 mg/dL (1.6-2.6); Osmolality,Calculated 278 (280-300); Phosphorous 4.2 mg/dL (2.7-4.5); Potassium 3.9 mEq/L (3.5-5.1); Sodium 132 mEq/L (136-145); Total Protein 6.5 g/dL (6.4-8.9); eGFR For Non-African Americans > 60 (> 60)
[2018-07-16 05:07] LABS: mecA Methicillin-Resist Gene DETECTED (Not Detect); vanA/B Vancomycin-Resist Genes Not Detected (Not Detect)
[2018-07-16 05:08] LABS: Acinetobacter baumannii by PCR Not Detected (Not Detect); Candida albicans by PCR Not Detected (Not Detect); Candida glabrata by PCR Not Detected (Not Detect); Candida krusei by PCR Not Detected (Not Detect); Candida parapsilosis by PCR Not Detected (Not Detect); Candida tropicalis by PCR Not Detected (Not Detect); Enterobacter cloacae Cmplx PCR Not Detected (Not Detect); Enterobacteriaceae by PCR Not Detected (Not Detect); Enterococcus by PCR Not Detected (Not Detect); Escherichia coli by PCR Not Detected (Not Detect); Klebsiella oxytoca by PCR Not Detected (Not Detect); Klebsiella pneumoniae by PCR Not Detected (Not Detect); Proteus by PCR Not Detected (Not Detect); Pseudomonas aeruginosa by PCR Not Detected (Not Detect); Serratia marcescens by PCR Not Detected (Not Detect); Staphylococcus aureus by PCR DETECTED (Not Detect); Staphylococcus by PCR DETECTED (Not Detect); Streptococcus agalactiae(B)PCR Not Detected (Not Detect); Streptococcus by PCR Not Detected (Not Detect); Streptococcus pneumoniae PCR Not Detected (Not Detect); Streptococcus pyogenes (A) PCR Not Detected (Not Detect)
[2018-07-16 05:33] LABS: Lymphocytes # 0.9 K/mcL (0.6-4.6); Neutrophils # 21.5 K/mcL (1.6-8.9)
[2018-07-16 05:48] LABS: Platelet Estimate Normal (Normal)
[2018-07-16] MEDS: *HR* Heparin 5,000 UNIT/ML VIAL SQ SCH ×3 (05:48→21:04)
[2018-07-16] MEDS: levoFLOXacin 750 MG TABLET PO SCH (08:08)
[2018-07-16] MEDS: Piperacillin/Tazobactam 3.375 GM in 0.9 % Sodium Chloride Mini Bag 100 ML IVPB SCH (08:09)
[2018-07-16] MEDS: predniSONE 20 MG TABLET PO SCH (10:07)
[2018-07-16] MEDS ORDERED: Tetracaine/Benzocaine/Butamben 1 SPRAY AEROSOL MM ONE (10:18)
[2018-07-16] MEDS ORDERED: 0.9 % Sodium Chloride 500 ML IVC ONE (10:18)
[2018-07-16] MEDS ORDERED: Lidocaine Viscous Oral Soln 15 ML SOLUTION MM ONE (10:19)
--- NOTE | 2018-07-16 10:45 | Internal Med Progress Note ---
<Donny Smith S - Last Filed: 07/16/18 08:24> Hospitalist Progress Note - Encounter Date of Encounter: 07/16/18 Time of Encounter: 08:24 - Subjective Interval History: Mr. Dill is a 37 year old male with a PMH of IVDU on suboxone and hepatitis C presents with the cc of fevers. He last used yesterday in the right arm via shooting up. He presents to the ER with continuation of his s/s from his last visit on 07/08. He c/o fevers, SOB, cough. He has chest pain that is worse with inspiration and abdominal pain. He has body aches as well. T max of 103* as per the thermometer the pt sister used. During his last visit, the pt left AMA. He was found to have a LVEF of 45% on ECHO with mild global LV systolic dysfxn. He has MRSA (+) blood cx on 07/08 and repeat were positive on the . CXR on his last visit showed multifocal lung consolidation in the right and left lower lobe concerning for pneumonia. CTA of the exam revealed multiple ill defined lung nodules indicating septic emboli. In the ER the pt was given a dose of zosyn. His initial troponin was (-) and his EKG showed sinus tacycardia. There were t wave inversions in v3, which appeared unchanged since his last visit. This morning the pt c/o diffuse pain all over, generalized aches. He feels very feverish and is soaking thru his hospital gown. He has chest pain worsens with inspiration. He has SOB. He has abd pain but no N/V. He is to go for BOB with ca rdiology today. - Exam Vitals: Temp Pulse Resp BP Pulse Ox 97.9 F 90 16 113/88 96 07/15/18 18:39 07/16/18 06:46 07/16/18 06:46 07/16/18 06:46 07/16/18 06:46 Exam: general - aox3, in mild distress, lethargic heent - ncat, mucus membranes moist cardio - tacycardia, no murmur, s1s2 present lungs - breath sounds diminished b/l, mild wheezing abd - tender to palpation, no rebound/guarding, no mass skin - many tattoos, no track reid, no splinter hemorrhages noted, no osler nodules - Assessment and Plan (1) Sepsis Current Visit: No Status: Acute Assessment and Plan: Most likely secondary to bacteremia and pneumonia Sepsis criteria on admission -WBC count 24.6 - temperature 102.7 - HR 126, RR 20 Currently meets sepsis criteria (07/16) - WBC 23.5 - t - 97.9 - HR 109, RR 15 On 07/08 & 07/09 - pt had blood cx positive for MRSA Repeat blood cx 07/15 - g(+) cocci on preliminary report ECHO on 07/09 - LVEF 45%, mild global LV systolic dysfxn - mild dilated RV with mild hypokinesis - suggestion of RV volume overload - no evidence of vegetation Meeks's criteria Major criteria - blood cx (+) for MRSA Minor criteria - fever, IVDU hx, pulmonary septic emboli High suspiscion for IE Pt has no vascular phenomenom such as osler's nodes, monzon spots, janeway lesions Plan: - start vancomycin dosed per pharmacy day 2 - start zosyn day 2 - levaquin day 2 - blood cx grid pending - monitor renal fxn, check cbc in AM - cardiology consult NPO currently pt will need BOB to r/o vegetations - ID consult (2) Bacteremia Current Visit: Yes Status: Acute Assessment and Plan: See plan as above for sepsis. (3) Pneumonia Current Visit: Yes Status: Acute Assessment and Plan: CXR from today showed increased patchy opacity w/in the lungs bilaterally - most suggestive of mulitfocal pneumonia CT of the chest showed septic pulmonary emboli on last admission - MRSA x2 on peripheral cx (07/08) --> repeat cultures show MRSA (07/09); - Inflenza neg, legionella negative on last visit WBC count on admission 24.6 ---> 23.5 today Plan: - plan as above for sepsis - vancomycin and zosyn and levaquin as per above - duobebs q6hr silvana - prednisone PO 20mg daily (4) IV drug abuse Current Visit: No Status: Chronic Assessment and Plan: Chronic - last date of use was 07/14 - SW consulted (5) Tobacco dependence Current Visit: No Status: Chronic Assessment and Plan: Smokes 1ppd - advised to quit (6) Hepatitis C Current Visit: No Status: Acute Assessment and Plan: Chronic - needs outpatient GI workup (7) DVT prophylaxis Current Visit: Yes Status: Acute Assessment and Plan: sq heparin - Time Spent with Patient Total time spent is greater than 50% in coordination of care (as documented) at patient's floor/unit and/or counseling patient: less than 15 minutes Plan of Care Discussed with: patient Internal Medicine: Result - Labs CBC & Chem 7: 07/16/18 04:03 07/16/18 04:03 Labs: Short CBC 07/15/18 07/16/18 Range/Units 15:34 04:03 WBC 24.6 H 23.5 H (4.3-11.1) K/mcL Hgb 8.8 L 8.6 L (12.9-16.9) g/dL Hct 27.4 L 26.3 L (37.5-50.1) % Plt Count 284 237 (140-400) K/mcL Neutrophils # 22.5 H 21.5 H (1.6-8.9) K/mcL BMP 07/15/18 07/16/18 15:34 04:03 Sodium 128 L 132 L Potassium 3.5 3.9 Chloride 96 L 102 Carbon Dioxide 25 24 BUN 16 16 Creatinine 0.78 0.81 Glucose 108 H 141 H Calcium 7.5 L 7.4 L Cardiac Enzymes 07/15/18 Range/Units 15:34 Troponin I < 0.03 (< 0.04) ng/mL Liver Function 07/15/18 07/16/18 Range/Units 15:34 04:03 Total Bilirubin 1.0 1.1 H (0.3-1.0) mg/dL Direct Bilirubin 0.4 H (0.0-0.2) mg/dL AST 23 32 (13-39) Units/L ALT 21 24 (7-52) Units/L Alkaline Phosphatase 92 108 H (34-104) Units/L Albumin 2.2 L 2.1 L (3.5-5.7) g/dL - ABG Interpretation ABG results: PT/INR, D-dimer PT 15.8 Seconds (9.4-12.1) H 07/15/18 15:34 - Impressions Impressions Chest X-Ray 07/15/18 15:19 IMPRESSION: Increased patchy opacity within the lungs bilaterally, most suggestive of multifocal pneumonia, but correlate with any clinical evidence of superimposed pneumonia. Again, as stated on the previous exam, this process should be followed to resolution. D/ / Tolu Elizabeth MD / Tolu Elizabeth MD Interpreting Provider: Tolu Elizabeth MD Consult Discharge Plan - Plan Referrals: NONE,PCP [Primary Care Provider] - <Tony Whipple - Last Filed: 07/16/18 15:38> Hospitalist Progress Note - Exam Vitals: Temp Pulse Resp BP Pulse Ox 97.9 F 67 18 140/93 97 07/16/18 10:43 07/16/18 10:43 07/16/18 10:43 07/16/18 10:43 07/16/18 10:43 - Assessment and Plan (1) Pneumonia Current Visit: Yes Status: Acute (2) Sepsis Current Visit: No Status: Acute (3) IV drug abuse Current Visit: No Status: Chronic (4) Tobacco dependence Current Visit: No Status: Chronic (5) Bacteremia Current Visit: Yes Status: Acute (6) Hepatitis C Current Visit: No Status: Acute (7) DVT prophylaxis Current Visit: Yes Status: Acute - Time Spent with Patient Total time spent is greater than 50% in coordination of care (as documented) at patient's floor/unit and/or counseling patient: Internal Medicine: Result - Labs CBC & Chem 7: 07/16/18 04:03 07/16/18 04:03 Labs: Short CBC 07/15/18 07/16/18 Range/Units 15:34 04:03 WBC 24.6 H 23.5 H (4.3-11.1) K/mcL Hgb 8.8 L 8.6 L (12.9-16.9) g/dL Hct 27.4 L 26.3 L (37.5-50.1) % Plt Count 284 237 (140-400) K/mcL Neutrophils # 22.5 H 21.5 H (1.6-8.9) K/mcL BMP 07/15/18 07/16/18 15:34 04:03 Sodium 128 L 132 L Potassium 3.5 3.9 Chloride 96 L 102 Carbon Dioxide 25 24 BUN 16 16 Creatinine 0.78 0.81 Glucose 108 H 141 H Calcium 7.5 L 7.4 L Cardiac Enzymes 07/15/18 Range/Units 15:34 Troponin I < 0.03 (< 0.04) ng/mL Liver Function 07/15/18 07/16/18 Range/Units 15:34 04:03 Total Bilirubin 1.0 1.1 H (0.3-1.0) mg/dL Direct Bilirubin 0.4 H (0.0-0.2) mg/dL AST 23 32 (13-39) Units/L ALT 21 24 (7-52) Units/L Alkaline Phosphatase 92 108 H (34-104) Units/L Albumin 2.2 L 2.1 L (3.5-5.7) g/dL - ABG Interpretation ABG results: PT/INR, D-dimer PT 15.8 Seconds (9.4-12.1) H 07/15/18 15:34 - Impressions Impressions Chest X-Ray 07/15/18 15:19 IMPRESSION: Increased patchy opacity within the lungs bilaterally, most suggestive of multifocal pneumonia, but correlate with any clinical evidence of superimposed pneumonia. Again, as stated on the previous exam, this process should be followed to resolution. D/ / Tolu Elizabeth MD / Tolu Elizabeth MD Interpreting Provider: Tolu Elizabeth MD - Attending Attestation I examined this patient and my medical decision-making was reviewed with the Resident Physician. I agree with the documented findings, disposition and treatment plan as described except to the extent set forth below. <oDnny Smith S - Last Filed: 07/16/18 08:24> (1) Sepsis Qualifiers: Sepsis type: sepsis due to unspecified organism Qualified Code(s): A41.9 - Sepsis, unspecified organism (3) Pneumonia Qualifiers: Pneumonia type: due to unspecified organism Laterality: unspecified laterality Lung location: unspecified part of lung Qualified Code(s): J18.9 - Pneumonia, unspecified organism (6) Hepatitis C Qualifiers: Viral hepatitis chronicity: chronic Hepatic coma status: without hepatic coma Qualified Code(s): B18.2 - Chronic viral hepatitis C <Tony Whipple - Last Filed: 07/16/18 15:38> (1) Pneumonia Qualifiers: Pneumonia type: due to unspecified organism Laterality: unspecified laterality Lung location: unspecified part of lung Qualified Code(s): J18.9 - Pneumonia, unspecified organism (2) Sepsis Qualifiers: Sepsis type: methicillin resistant Staphylococcus aureus Qualified Code(s): A41.02 - Sepsis due to Methicillin resistant Staphylococcus aureus (6) Hepatitis C Qualifiers: Viral hepatitis chronicity: chronic Hepatic coma status: without hepatic coma Qualified Code(s): B18.2 - Chronic viral hepatitis C
--- NOTE | 2018-07-16 10:56 | Infectious Disease Consult ---
Date of Encounter: 07/16/18 Time of Encounter: 10:31 Assessment and Plan (1) Sepsis Status: Acute Assessment and plan: -Secondary to bacteremia -Infective agent: MRSA - Meets 3/4 SIRS criteria including fever of 102.7 on admission, HR 112, WBC of 24.6. - Lactic acid 1.3 - Remains tachycardic in 90s and WBC of 23.5. - Likely secondary to IVDU and suspect endocarditis. Last heroin use 07/14/18 - Blood cultures positive for MRSA x 2 on 07/08 - Blood culture positive for MRSA x 2 on 07/09 - Blood culture positive for MRSA x 2 on 07/11 - Blood culture positive for MRSA x 3 on 07/15 - Influenza swab negative - CXR on 07/08 and 07/15 show evidence of multifocal PNA - CTA 07/10 show multiple lung nodules, most cavitated indicating septic emboli - CT head 07/09 shows no acute process - TTE 07/09/18 shows EF 45%, mild global systolic dysfunction, mild dilation of RV and hypokinesis. mild-moderate TR Antibiotic-- Vancomycin, Zosyn, levaquin started in ED, day2 Completed 3 day course of vancomycin (and levaquin) on previous admission from 07/08-07/11 Plan - Complicated MRSA bactereia due to persistently positive blood cultures as well as evidence of septic emboli - Continue vancomycin, day 2. Duration of treatment depends on clinical picture but likely 6 weeks - Agree with BOB to confirm suspected vegetations - Will discontinue Zosyn and levaquin as we have a known organism. - Goal vancomycin trough 15-20 Qualifiers: Qualified Code(s): A41.02 - Sepsis due to Methicillin resistant Staphylococcus aureus (2) Infective endocarditis Status: Acute Assessment and plan: - Infective endocarditis with MRSA bacteremia - Meets 1 major (bacteremia) and 3 minor (IVDU, fevers, septic emboli) sanderson criteria - TTE shows no obvious vegetations however mild- moderate TR is concerning for vegetation - No history of prosthetic valves or hardware, however IVDU and persistent bacteremia suggest complicated MRSA bacteremia Blood cultures positive on 07/08, 07/09, 07/11, 07/15 all positive for MRSA despite vancomycin therapy No evidence of janeway lesions, osler nodes, conjunctival hemorrhage, thrush on exam CTA shows septic emboli on last visit before leaving [facility]. Plan Agree with BOB Continue vancomycin, day 2 - Duration likely 6 weeks given complicated MRSA bacteremia - Vanc trough 15-20 Qualifiers: Qualified Code(s): I33.0 - Acute and subacute infective endocarditis (3) Bacteremia Status: Acute Assessment and plan: - as above for sepsis - positive for MRSA - Continue vanc (4) IV drug abuse Status: Chronic Assessment and plan: - Known history of IVDU with heroin use. - Most recent use 07/14 after leaving AMA from hospital - Encouraged cessation - Patient states that he is normally on suboxone however the pain was too severe to handle while admitted - Further management per primary team and outpatient. - HIV negative. Known history of Hep C and Hep B core positive (5) Hepatitis C Status: Chronic Assessment and plan: - Known history of hepatitis C, has not had treatment - Secondary to IVDU - LFTs wnl. - Further management as outpatient Qualifiers: Qualified Code(s): B18.2 - Chronic viral hepatitis C (6) History of hepatitis B Status: Chronic Assessment and plan: - Found on last admission with Hep B core Ag positive. - Immune. Core Ag positive but surface Ag negative. - Secondary to IVDU - LFTs wnl. - Further management as outpatient Infectious Disease HPI - Data of Consult Patient: new to practice Consult date: 07/16/18 Requesting Physician: Tony Whipple MD Primary Care Provider: PCP NONE - Consult Narrative Reason for consult: Infectious endocarditis History of present illness: Mr. Dill is a 37 year old male who presented to the emergency department with complaint of fevers since 2 weeks ago. He also has a associated symptoms of shortness of breath, nonproductive cough, pleuritic chest pain and body aches. He has been measuring these fevers at home and reports a fever of 103, as well as 106 at home. Chest pain is present at rest and worsen with deep breathing, coughing, and palpation. He also admits to diffuse body aches which have been pr esent for about the same time. He has withdrawn from heroin in the past but states that these pains were different from withdrawal. He denies symptoms of nausea, vomiting, diarrhea. He does admit to decreased bowel movements in past 2-3 days but admits to poor oral intake. He was recently admitted to this hospital from 07/08/18 to 07/11/18 with the same complaints however he left against medical advice because he was having a large amount of pain which was not being treated and he had run out of his home suboxone. During that admission, he was noted to be septic with tachycardia, tachypnea, and leukocytosis of 31.7 on presentation. Lactic acid was wnl at 1.8 at that time. He did have a mildly elevated troponin of 0.04 which was trended and adynamic. CRP was 145 and ESR was 75. Urinalysis was negative for infection and UDS was positive for opiates. Blood cultures were drawn on 07/08, 07/09, 07/11 which all were positive x2 for MRSA. He was started on levaquin and vancomycin. Suspected source at that time was multifocal pneumonia seen on CXR. CTA of the chest was also obtained on 07/10 which showed multiple areas of consolidation and cavitary lesions consistent with septic emboli. Infectious disease was consulted at that time and discontinued levaquin. TTE was obtained which showed EF 45% with mild global left ventricular systolic dysfunction, mildly dilated right ventricle, mild-moderate tricuspid regurgitation. Further labratory testing showed negative HIV but was positive for hepatitis B core Ab. He does have a PMHx of IVDU on suboxone, Hepatitis C which has not been treated as he has not been able to stay clean from heroin use. Most recent use was 2 days ago after being discharged from hospital. He states it has been the only thing that can relieve his pain. On presentation to the emergency department on this visit, vitals were significant for fever of 102.7, tachycardia of 112. Labs significant for WBC elevation of 24.6, hgb of 8.8 (baseline unclear, 12 on 07/08). Blood cultures were drawn in ED and are again positive for gram positive cocci with mecA gene and staph aureus by PCR. He was started on vancomycin and zosyn. Repeat CXR showed increased patcy opacity in bilateral lung suggestive of multifocal PNA. During exam today, patient stated that is continues to have fevers, chills at home and feels warm now. His biggest concern at this time is his pain. It is located diffusely but is prominent in the epigastric region as well as diffuse chest. Continues to be pleuritic and worse with palpation and coughing. Cough is non productive however he does not feel he is coughing deep enough to bring anything up. He has been afebrile since admission but remains tachycardic. CC: Tony Whipple MD Past Med Surg Social Fam HX - Past Medical History Medical history: hepatitis Psychiatric history: no psych history - Past Surgical History Surgical History: no surgical history - Social History Smoking Status: Current every day smoker Packs per day: 1 Smokeless Tobacco Status: No Alcohol use: none Drug use: opiates, IV Drug Use Infectious Disease-CN:Meds Acetaminophen [Pain Relief] 500 mg PO BID PRN 07/08/18 [History] Ibuprofen 800 mg PO TID PRN 07/08/18 [History] RX: Buprenorphine HCl/Naloxone HCl [Buprenorphin-Naloxon 8-2 mg Sl] 1 tab PO BID 07/08/18 [History] Fluticasone Propionate [Aller-Yves] 1 spr NS DAILY 07/15/18 [History] Allergy/AdvReac Type Severity Reaction Status Date / Time codeine Allergy Rash Verified 07/08/18 13:30 tramadol Allergy Rash Verified 07/08/18 13:30 Exam - Constitutional Vitals: Temp Pulse Resp BP Pulse Ox 97.9 F 90 16 113/88 96 07/15/18 18:39 07/16/18 06:46 07/16/18 06:46 07/16/18 06:46 07/16/18 06:46 Exam: Gen.: Vitals noted. No acute distress. AAOx3. Resting comfortably in bed. Sleeping when I entered. Mildly diaphoretic Neck: No meningeal signs, no nuchal regidity, no cervical adenopathy. HEENT: PERRL/EOMI, oropharynx clear, Normocephalic, atraumatic, MMM, no conjunctival hemorrhage, poor dentition. Cardiac: RRR, no murmur, +S1/S2 Pulmonary: CTA bilaterally, no wheezes, rales or rhonchi, equal chest expansion Abdomen: soft, diffusely tender to mild palpation, possible hepatomegaly, BS noted, no guarding, no rebound. MSK: ROM intact, no joint swelling noted Skin: No rashes, no janeway lesions or oslers nodes. Extremities: no BLE edema, nontender calf, no cyanosis or clubbing Neuro: A&Ox3, moves all extremities, no focal deficits Psych: Appropriate mood and behavior Infectious Disease CN: Results - Labs CBC & Chem 7: 10/26/18 03:11 07/17/18 03:11 Cultures: Cultures 07/15/18 16:22 Blood Culture - Preliminary Peripheral Venipuncture Gram Positive Cocci 07/15/18 15:34 Blood Culture - Preliminary Peripheral Venipuncture Gram Positive Cocci 07/15/18 15:53 Blood Culture - Preliminary Peripheral Venipuncture Gram Positive Cocci Serology: Serology 07/15/18 07/15/18 07/15/18 Range/Units 18:23 18:23 15:53 T.pallidum Ab Interpret Negative (NEGATIVE) A. baumannii (PCR) Not Detected (Not Detect) Monse albicans (PCR) Not Detected (Not Detect) C. glabrata (PCR) Not Detected (Not Detect) C. krusei (PCR) Not Detected (Not Detect) C. parapsilosis (PCR) Not Detected (Not Detect) C. tropicalis (PCR) Not Detected (Not Detect) Enterobacteriac sp PCR Not Detected (Not Detect) E. cloacae complex PCR Not Detected (Not Detect) Enterococcus sp PCR Not Detected (Not Detect) E. coli (PCR) Not Detected (Not Detect) H. influenzae (PCR) Not Detected (Not Detect) HIV Ag/Ab Combo Qual Nonreactive (Nonreactive) Klebsiella oxytoca PCR Not Detected (Not Detect) Klebsiella pneumoniae Not Detected (Not Detect) List. monocytogenes PCR Not Detected (Not Detect) N. meningitidis (PCR) Not Detected (Not Detect) Proteus species (PCR) Not Detected (Not Detect) Serratia marcescens PCR Not Detected (Not Detect) Staphylococcus sp PCR DETECTED A (Not Detect) Staph aureus (PCR) DETECTED A (Not Detect) mecA-Methicil Res Gene DETECTED A (Not Detect) Streptococcus sp PCR Not Detected (Not Detect) Group A Strep DNA Not Detected (Not Detect) Group B Strep (PCR) Not Detected (Not Detect) Strep pneumoniae (PCR) Not Detected (Not Detect) P. aeruginosa (PCR) Not Detected (Not Detect) Pravin/B-Vanco Res Genes Not Detected (Not Detect) KPC (blaKPC) Detect PCR N/A (Not Detect) Consult Discharge Plan - Plan Referrals: Donny Smith [Resident] - 07/29/18 NONE,PCP [Primary Care Provider] - - Attending Attestation I examined this patient and my medical decision-making was reviewed with the Resident Physician. I agree with the documented findings, disposition and treatment plan as described except to the extent set forth below. This is an addendum to original report dictated by resident physician. Please refer to resident's note for full detail. Patient is a 37-year-old gentleman with past medical history mentioned below including history of IV drug use, hepatitis B and history of hepatitis C was recently in the hospital with MRSA bacteremia concerning for endocarditis but patient decided to sign out AMA with an IV line in his arm. Patient came back with fevers chills and just not feeling well at all and appears to be toxic. Repeat cultures continues to show MRSA bacteremia and we were asked to evaluate the patient's make further recommendations. Currently patient laying in bed and appears toxic states that he is having pain all over. Physical exam for endocarditis shows no endocarditis stigmata no conjunctival hemorrhage no murmur and no tenderness over his spine. Assessment and plan: Sepsis MRSA bacteremia Endocarditis (1 major 3 minor Bonner criteria) BOB pending Septic emboli to the lung IV drug use Hepatitis C History of hepatitis B Recommendations Continue vancomycin with goal Vanco trough 15-20 close to 20 preferably Obtain a BOB Monitor labs for drug toxicity Prognosis guarded Will need a PICC line eventually once the bacteremia has resolved
[2018-07-16] MEDS: *HR* Midazolam HCl 5 MG/5 ML VIAL IVP PRN ×2 (11:30→11:35)
[2018-07-16] MEDS: *HR* FentaNYL (PF) 100 MCG/2 ML VIAL IVP PRN ×3 (11:30→11:45)
--- NOTE | 2018-07-16 15:06 | Cardiology Consult Note ---
<Camilo Griffin T - Last Filed: 07/16/18 15:15> Date of Encounter: 07/16/18 Time of Encounter: 15:01 Assessment and Plan (1) Infective endocarditis Current Visit: Yes Status: Acute BOB shows multiple vegetations, given IVDU and overall clinical picture patient most likely has septic emboli. Will follow patient tomorrow. Refer to ID for antibiotic recs. Recommend patient follow up with cardiology to workup decreased ejection fraction. Qualifiers: Infective endocarditis organism: unspecified organism Chronicity: acute Qualified Code(s): I33.0 - Acute and subacute infective endocarditis Discussion w patient/family: The assessment and plan as outlined above was discussed with the patient and/or family members who expressed understanding and agreement. All questions were answered. Thank you for involving us in the care of your patient. Please call with any questions. History of Present Illness Consult date: 07/16/18 Consult reason: Possible septic emboli to heart History of present illness: Mr. Dill is a 37 year old male consulted for chest pain, fever, and history of IVDU. Patient endorses chest pain that is non-radiating, rated 10/10, worse with inspiration. Also complains of abdominal pain in a band like distribution along RL and LL quadrants. He also states he has SOB, and nonproductive cough Patient has history of IVDU, with his last use being yesterday. Echo done on 07/09 shows 45% EF. He has negative tropnins and EKG that show no ST segment abnormailites. CXR shows RLL and LLL pneumonia. Past Med Surg Social Fam HX - Past Medical History Medical history: hepatitis Psychiatric history: no psych history - Past Surgical History Surgical History: no surgical history - Social History Smoking Status: Current every day smoker Packs per day: 1 Smokeless Tobacco Status: No Alcohol use: none Drug use: opiates, IV Drug Use Medications and Allergies Acetaminophen [Pain Relief] 500 mg PO BID PRN 07/08/18 [History] Ibuprofen 800 mg PO TID PRN 07/08/18 [History] RX: Buprenorphine HCl/Naloxone HCl [Buprenorphin-Naloxon 8-2 mg Sl] 1 tab PO BID 07/08/18 [History] Fluticasone Propionate [Aller-Yves] 1 spr NS DAILY 07/15/18 [History] Allergy/AdvReac Type Severity Reaction Status Date / Time codeine Allergy Rash Verified 07/08/18 13:30 tramadol Allergy Rash Verified 07/08/18 13:30 All Systems Review: The remainder of the systems were reviewed and are negative - Constitutional Constitutional: chills, fatigue, fever(s), malaise, weakness - Cardiovascular Cardiovascular: as per HPI - Respiratory Respiratory: cough - Gastrointestinal Gastrointestinal: abdominal pain Physical Examination General: Conversant HEENT: Atraumatic Neck: No JVD Cardiac: Reg Rate and Rhythm, Normal S1 and S2, Other (Murmur appreciated from tricupsid valve) Lungs: Other Neuro: Alert and responsive, No focal deficits noted Abdomen: Other (Tenderness in RL and LL quadrants in band like distribtuion) Musculoskeletal: No Chest Wall Tenderness Extremities: No Edema, Normal Pulses Other: wheezing b/l Results 07/16/18 04:03 07/16/18 04:03 Lab Results 07/15/18 07/15/18 07/15/18 15:34 15:34 15:34 WBC 24.6 H Hgb 8.8 L Hct 27.4 L Plt Count 284 INR 1.4 APTT 31.8 Sodium 128 L Potassium 3.5 Chloride 96 L Carbon Dioxide 25 BUN 16 Creatinine 0.78 Glucose 108 H Calcium 7.5 L Magnesium 1.8 Total Bilirubin 1.0 AST 23 ALT 21 Alkaline Phosphatase 92 Troponin I < 0.03 B-Natriuretic Peptide 07/15/18 07/16/18 07/16/18 15:34 04:03 04:03 WBC 23.5 H Hgb 8.6 L Hct 26.3 L Plt Count 237 INR APTT Sodium 132 L Potassium 3.9 Chloride 102 Carbon Dioxide 24 BUN 16 Creatinine 0.81 Glucose 141 H Calcium 7.4 L Magnesium 1.9 Total Bilirubin 1.1 H AST 32 ALT 24 Alkaline Phosphatase 108 H Troponin I B-Natriuretic Peptide 630 H - Imaging and Cardiology Chest Xray: report reviewed Echo: report reviewed - EKG Interpretation EKG results cardiology: personally reviewed Consult Discharge Plan - Plan Referrals: NONE,PCP [Primary Care Provider] - <Cady Rose - Last Filed: 07/16/18 15:44> - Attending Attestation I have personally performed a face to face evaluation on this patient. I have reviewed and agree with the care plan. History and Exam by me shows: 37 YOM IVDU with suspected IE confirmed on BOB, EF 45% consider work up once stable from underlting infection. Non invasive work up for ischemia is likely better than invasive. Assessment and Plan Discussion w patient/family: The assessment and plan as outlined above was discussed with the patient and/or family members who expressed understanding and agreement. All questions were answered. Thank you for involving us in the care of your patient. Please call with any questions. History of Present Illness History of present illness: Mr. Dill is a 37 year old male All Systems Review: The remainder of the systems were reviewed and are negative Results 07/16/18 04:03 07/16/18 04:03 Lab Results 07/15/18 07/15/18 07/15/18 15:34 15:34 15:34 WBC 24.6 H Hgb 8.8 L Hct 27.4 L Plt Count 284 INR 1.4 APTT 31.8 Sodium 128 L Potassium 3.5 Chloride 96 L Carbon Dioxide 25 BUN 16 Creatinine 0.78 Glucose 108 H Calcium 7.5 L Magnesium 1.8 Total Bilirubin 1.0 AST 23 ALT 21 Alkaline Phosphatase 92 Troponin I < 0.03 B-Natriuretic Peptide 07/15/18 07/16/18 07/16/18 15:34 04:03 04:03 WBC 23.5 H Hgb 8.6 L Hct 26.3 L Plt Count 237 INR APTT Sodium 132 L Potassium 3.9 Chloride 102 Carbon Dioxide 24 BUN 16 Creatinine 0.81 Glucose 141 H Calcium 7.4 L Magnesium 1.9 Total Bilirubin 1.1 H AST 32 ALT 24 Alkaline Phosphatase 108 H Troponin I B-Natriuretic Peptide 630 H
[2018-07-16] MEDS: Ketorolac 30 MG/ML VIAL IVP PRN (19:06)
[2018-07-16] MEDS: *HR* Promethazine 25 MG/ML VIAL IVP PRN (22:42)
[2018-07-17] MEDS: Ipratropium/Albuterol Neb 3 ML IH SCH ×2 (04:21→10:58)
[2018-07-17 04:55] LABS: Hematocrit 26.4 % (37.5-50.1); Hemoglobin 8.6 g/dL (12.9-16.9); Mean Corpuscular HGB Conc 32.6 g/dL (31.6-35.5); Mean Corpuscular Hemoglobin 25.7 pg (28.0-33.3); Mean Platelet Volume 11.5 fL (9.4-12.4); Platelet Count 279 K/mcL (140-400); Red Blood Count 3.34 M/mcL (4.19-5.50); Red Cell Distribution Width 16.4 % (11.5-14.5)
[2018-07-17 05:16] LABS: Alanine Aminotransferase 21 Units/L (7-52); Albumin 1.9 g/dL (3.5-5.7); Albumin/Globulin Ratio 0.5 (1.1-2.2); Alkaline Phosphatase 101 Units/L (34-104); Aspartate Amino Transferase 27 Units/L (13-39); BUN/Creatinine Ratio 35 (6-26); Bilirubin,Total 0.4 mg/dL (0.3-1.0); Blood Urea Nitrogen 29 mg/dL (6-20); Calcium 7.6 mg/dL (8.6-10.3); Carbon Dioxide 23 mEq/L (23-29); Chloride 102 mEq/L (98-107); Glucose 120 mg/dL (70-105); Osmolality,Calculated 289 (280-300); Sodium 136 mEq/L (136-145); Total Protein 5.9 g/dL (6.4-8.9); eGFR For Non-African Americans > 60 (> 60)
[2018-07-17] MEDS: Ketorolac 30 MG/ML VIAL IVP PRN ×2 (06:15→19:05)
[2018-07-17] MEDS: *HR* Heparin 5,000 UNIT/ML VIAL SQ SCH ×2 (06:15→16:20)
[2018-07-17 06:19] LABS: Lymphocytes # 1.2 K/mcL (0.6-4.6); Neutrophils # 22.4 K/mcL (1.6-8.9)
[2018-07-17 06:20] LABS: Hypochromasia Present (Not Present); Platelet Estimate Normal (Normal)
--- NOTE | 2018-07-17 09:18 | Internal Med Progress Note ---
<Donny Smith S - Last Filed: 07/17/18 09:15> Hospitalist Progress Note - Encounter Date of Encounter: 07/17/18 Time of Encounter: 09:15 - Subjective Interval History: Mr. Dill is a 37 year old male with a PMH of IVDU on suboxone and hepatitis C presents with the cc of fevers. He last used yesterday in the right arm via shooting up. He presents to the ER with continuation of his s/s from his last visit on 07/08. He c/o fevers, SOB, cough. He has chest pain that is worse with inspiration and abdominal pain. He has body aches as well. T max of 103* as per the thermometer the pt sister used. During his last visit, the pt left AMA. He was found to have a LVEF of 45% on ECHO with mild global LV systolic dysfxn. He has MRSA (+) blood cx on 07/08 and repeat were positive on the . CXR on his last visit showed multifocal lung consolidation in the right and left lower lobe concerning for pneumonia. CTA of the exam revealed multiple ill defined lung nodules indicating septic emboli. In the ER the pt was given a dose of zosyn. His initial troponin was (-) and his EKG showed sinus tacycardia. There were t wave inversions in v3, which appeared unchanged since his last visit. This morning the pt states that his chest pain has improved, still has some generalized aches. Chest pain continues to increase with deep inspiration, SOB has improved. He has abd pain but no N/V. - Exam Vitals: Temp Pulse Resp BP Pulse Ox 97.6 F 90 18 108/82 96 07/17/18 01:11 07/17/18 07:16 07/17/18 07:16 07/17/18 07:16 07/17/18 07:16 Exam: general - aox3, in mild distress, lethargic heent - ncat, mucus membranes moist cardio - tacycardia, no murmur, s1s2 present lungs - breath sounds diminished b/l, mild wheezing abd - tender to palpation, no rebound/guarding, no mass skin - many tattoos, no track reid, no splinter hemorrhages noted, no osler nodules - Assessment and Plan (1) Sepsis Current Visit: No Status: Acute Assessment and Plan: Most likely secondary to bacteremia and pneumonia Sepsis criteria on admission -WBC count 24.6 - temperature 102.7 - HR 126, RR 20 Currently meets sepsis criteria (07/16) - WBC 24.6 - t - 97.6 - HR 90, RR 18 On 07/08 & 07/09 - pt had blood cx positive for MRSA Repeat blood cx 07/15 - g(+) cocci on preliminary report ECHO on 07/09 - LVEF 45%, mild global LV systolic dysfxn - mild dilated RV with mild hypokinesis - suggestion of RV volume overload - no evidence of vegetation BOB performed yesterday showed - LVEF 60-65% - fleshy, echogenic mass , suspiciosu of a vegetation on the posterior leaflet and transverse sinus ; suspicious for septic emboli - severe TR Meeks's criteria Major criteria - blood cx (+) for MRSA Minor criteria - fever, IVDU hx, pulmonary septic emboli High suspiscion for IE Pt has no vascular phenomenom such as osler's nodes, monzon spots, janeway lesions Plan: - start vancomycin dosed per pharmacy day 3 - start zosyn day 3 - levaquin day 3 - blood cx grid pending - monitor renal fxn, check cbc in AM - cardiology consult - ID consult - regular diet (2) Bacteremia Current Visit: Yes Status: Acute Assessment and Plan: See plan as above for sepsis. (3) Pneumonia Current Visit: Yes Status: Acute Assessment and Plan: CXR from today showed increased patchy opacity w/in the lungs bilaterally - most suggestive of mulitfocal pneumonia CT of the chest showed septic pulmonary emboli on last admission - MRSA x2 on peripheral cx (07/08) --> repeat cultures show MRSA (07/09); - Inflenza neg, legionella negative on last visit WBC count on admission 24.6 ---> 23.5 ---> 24.6 Plan: - plan as above for sepsis - vancomycin and zosyn and levaquin as per above - duobebs q6hr silvana - prednisone PO 20mg daily (4) IV drug abuse Current Visit: No Status: Chronic Assessment and Plan: Chronic - last date of use was 07/14 - SW consulted (5) Tobacco dependence Current Visit: No Status: Chronic Assessment and Plan: Smokes 1ppd - advised to quit (6) Hepatitis C Current Visit: No Status: Acute Assessment and Plan: Chronic - needs outpatient GI workup (7) DVT prophylaxis Current Visit: Yes Status: Acute Assessment and Plan: sq heparin - Time Spent with Patient Total time spent is greater than 50% in coordination of care (as documented) at patient's floor/unit and/or counseling patient: less than 15 minutes Plan of Care Discussed with: patient Internal Medicine: Result - Labs CBC & Chem 7: 07/17/18 03:11 07/17/18 03:11 Labs: Short CBC 07/17/18 Range/Units 03:11 WBC 24.6 H (4.3-11.1) K/mcL Hgb 8.6 L (12.9-16.9) g/dL Hct 26.4 L (37.5-50.1) % Plt Count 279 (140-400) K/mcL Neutrophils # 22.4 H (1.6-8.9) K/mcL BMP 07/17/18 03:11 Sodium 136 Potassium 4.0 Chloride 102 Carbon Dioxide 23 BUN 29 H Creatinine 0.84 Glucose 120 H Calcium 7.6 L Liver Function 07/17/18 Range/Units 03:11 Total Bilirubin 0.4 (0.3-1.0) mg/dL AST 27 (13-39) Units/L ALT 21 (7-52) Units/L Alkaline Phosphatase 101 (34-104) Units/L Albumin 1.9 L (3.5-5.7) g/dL - ABG Interpretation ABG results: PT/INR, D-dimer PT 15.8 Seconds (9.4-12.1) H 07/15/18 15:34 Consult Discharge Plan - Plan Referrals: Donny Smith [Resident] - 07/29/18 NONE,PCP [Primary Care Provider] - <Tony Whipple - Last Filed: 07/17/18 18:00> Hospitalist Progress Note - Exam Vitals: Temp Pulse Resp BP Pulse Ox 97.8 F 93 16 119/87 100 07/17/18 15:27 07/17/18 15:27 07/17/18 17:37 07/17/18 15:27 07/17/18 17:37 - Assessment and Plan (1) Pneumonia Current Visit: Yes Status: Acute (2) Sepsis Current Visit: Yes Status: Acute (3) IV drug abuse Current Visit: Yes Status: Chronic (4) Tobacco dependence Current Visit: No Status: Chronic (5) Bacteremia Current Visit: Yes Status: Acute (6) Hepatitis C Current Visit: Yes Status: Chronic (7) DVT prophylaxis Current Visit: Yes Status: Acute (8) Infective endocarditis Current Visit: Yes Status: Acute - Time Spent with Patient Total time spent is greater than 50% in coordination of care (as documented) at patient's floor/unit and/or counseling patient: Internal Medicine: Result - Labs CBC & Chem 7: 07/17/18 03:11 07/17/18 03:11 Labs: Short CBC 07/17/18 Range/Units 03:11 WBC 24.6 H (4.3-11.1) K/mcL Hgb 8.6 L (12.9-16.9) g/dL Hct 26.4 L (37.5-50.1) % Plt Count 279 (140-400) K/mcL Neutrophils # 22.4 H (1.6-8.9) K/mcL BMP 07/17/18 03:11 Sodium 136 Potassium 4.0 Chloride 102 Carbon Dioxide 23 BUN 29 H Creatinine 0.84 Glucose 120 H Calcium 7.6 L Liver Function 07/17/18 Range/Units 03:11 Total Bilirubin 0.4 (0.3-1.0) mg/dL AST 27 (13-39) Units/L ALT 21 (7-52) Units/L Alkaline Phosphatase 101 (34-104) Units/L Albumin 1.9 L (3.5-5.7) g/dL - ABG Interpretation ABG results: PT/INR, D-dimer PT 15.8 Seconds (9.4-12.1) H 07/15/18 15:34 - Attending Attestation I examined this patient and my medical decision-making was reviewed with the Resident Physician. I agree with the documented findings, disposition and treatment plan as described except to the extent set forth below. <Donny Smith - Last Filed: 07/17/18 09:15> (1) Sepsis Qualifiers: Sepsis type: methicillin resistant Staphylococcus aureus Qualified Code(s): A41.02 - Sepsis due to Methicillin resistant Staphylococcus aureus (3) Pneumonia Qualifiers: Pneumonia type: due to unspecified organism Laterality: unspecified laterality Lung location: unspecified part of lung Qualified Code(s): J18.9 - Pneumonia, unspecified organism (6) Hepatitis C Qualifiers: Viral hepatitis chronicity: chronic Hepatic coma status: without hepatic coma Qualified Code(s): B18.2 - Chronic viral hepatitis C <Tony Whipple - Last Filed: 07/17/18 18:00> (1) Pneumonia Qualifiers: Pneumonia type: due to unspecified organism Laterality: unspecified laterality Lung location: unspecified part of lung Qualified Code(s): J18.9 - Pneumonia, unspecified organism (2) Sepsis Qualifiers: Sepsis type: methicillin resistant Staphylococcus aureus Qualified Code(s): A41.02 - Sepsis due to Methicillin resistant Staphylococcus aureus (6) Hepatitis C Qualifiers: Viral hepatitis chronicity: chronic Hepatic coma status: without hepatic coma Qualified Code(s): B18.2 - Chronic viral hepatitis C (8) Infective endocarditis Qualifiers: Infective endocarditis organism: bacterial Chronicity: acute Qualified Code(s): I33.0 - Acute and subacute infective endocarditis
[2018-07-17] MEDS ORDERED: Nicotine 2 MG GUM BC PRN (09:21)
[2018-07-17] MEDS ORDERED: Nicotine 7 MG PATCH.TD24 TD SCH (09:30)
[2018-07-17] MEDS: predniSONE 20 MG TABLET PO SCH (09:52)
[2018-07-17] MEDS: Buprenorphine Hcl/Naloxone Hcl [Buprenorphin-Naloxon PO SCH (09:53)
[2018-07-17] MEDS ORDERED: Ipratropium/Albuterol Neb 3 ML IH PRN (11:15)
[2018-07-17] MEDS: *HR* Promethazine 25 MG/ML VIAL IVP PRN ×2 (11:33→19:05)
--- NOTE | 2018-07-17 11:42 | Cardiology Progress Note ---
Addendum entered and electronically signed by Albert Pathak MD 07/19/18 08:58: I examined this patient and my medical decision-making was reviewed with the Resident Physician. I agree with the documented findings, disposition and treatment plan as described except to the extent set forth below. A/P: Infective endocarditis with septic emboli - continue antibiotics x 6 weeks Original Note: Date of Encounter: 07/17/18 Time of Encounter: 11:40 Assessment and Plan (1) Infective endocarditis Current Visit: Yes Status: Acute BOB shows multiple vegetations, given IVDU and overall clinical picture patient most likely has septic emboli. Refer to ID for antibiotic recs. Recommend patient follow up with cardiology to workup decreased ejection fraction. Cardiology will sign off at this time. Qualifiers: Infective endocarditis organism: bacterial Chronicity: acute Qualified Code(s): I33.0 - Acute and subacute infective endocarditis Discussion w patient/family: The assessment and plan as outlined above was discussed with the patient and/or family members who expressed understanding and agreement. All questions were answered. Thank you for involving us in the care of your patient. Please call with any questions. Subjective Principal diagnosis: Endocarditis Interval history: Patient reports no changes. ID has discussed their plans with him. Objective General: Conversant HEENT: Atraumatic Cardiac: Reg Rate and Rhythm, Normal S1 and S2 Lungs: Other (decreased breath sounds, wheezing) Neuro: Alert and responsive Abdomen: Other (lower quadrant abdominal tenderness) Musculoskeletal: No Chest Wall Tenderness Extremities: No Cyanosis, Normal Pulses Results 07/17/18 03:11 07/17/18 03:11 Lab Results 07/17/18 07/17/18 03:11 03:11 WBC 24.6 H Hgb 8.6 L Hct 26.4 L Plt Count 279 Sodium 136 Potassium 4.0 Chloride 102 Carbon Dioxide 23 BUN 29 H Creatinine 0.84 Glucose 120 H Calcium 7.6 L Total Bilirubin 0.4 AST 27 ALT 21 Alkaline Phosphatase 101 Consult Discharge Plan - Plan Referrals: NONE,PCP [Primary Care Provider] -
[2018-07-17] MEDS ORDERED: *HR* Buprenorphine HCl 8 MG TAB.SUBL SL SCH (15:25)
[2018-07-17 15:28] VITALS: BP 119/87
[2018-07-17] MEDS ORDERED: Aminoglycoside Consult 1 EACH MC ONE (19:15)
--- NOTE | 2018-07-17 19:24 | Infectious Disease Progress No ---
Date of Encounter: 07/17/18 Time of Encounter: 14:36 - Assessment and Plan (1) Sepsis Current Visit: Yes Status: Acute -Secondary to bacteremia -Infective agent: MRSA - Meets 3/4 SIRS criteria on admission including fever of 102.7, HR 112, WBC of 24.6. - Lactic acid 1.3 - Remains tachycardic in 90s and WBC of 24.6 - Likely secondary to IVDU and suspect endocarditis. Last heroin use 07/14/18 - Blood cultures positive for MRSA x 2 on 07/08 - Blood culture positive for MRSA x 2 on 07/09 - Blood culture positive for MRSA x 2 on 07/11 - Blood culture positive for MRSA x 3 on 07/15 - Influenza swab negative - Repeat blood culture 07/17, NG thus far - CXR on 07/08 and 07/15 show evidence of multifocal PNA - CTA 07/10 show multiple lung nodules, most cavitated indicating septic emboli - CT head 07/09 shows no acute process - TTE 07/09/18 shows EF 45%, mild global systolic dysfunction, mild dilation of RV and hypokinesis. mild-moderate TR - BOB 07/16/18 shows EF 60-65%. Evidence of a 1.7 x 0.7 cm mobile, fleshy, echogenic mass suspicious of vegetation on the posterior leaflet. Also mobile 1.2 cm by was 0.6 on room mass in the transverse sinus suspicious for septic emboli. Severe tricuspid regurgitation. Antibiotic-- Vancomycin, Zosyn, levaquin started in ED. Zosyn and levaquin discontinued 07/16. Vanc day 3 Completed 3 day course of vancomycin (and levaquin) on previous admission from 07/08-07/11 Plan - consult CTS and consider transfer patient for surgical intervention - Complicated MRSA bactereia due to persistently positive blood cultures as well as evidence of septic emboli - Continue vancomycin, day 3. Duration of treatment depends on clinical picture but likely 6 weeks - Goal vancomycin trough 15-20, trough 23 today Qualifiers: Sepsis type: methicillin resistant Staphylococcus aureus Qualified Code(s): A41.02 - Sepsis due to Methicillin resistant Staphylococcus aureus (2) Infective endocarditis Current Visit: Yes Status: Acute - Infective endocarditis with MRSA bacteremia - Meets 2 major (bacteremia, vegetation) and 3 minor (IVDU, fevers, septic emboli) sanderson criteria - TTE shows no obvious vegetations however mild- moderate TR is concerning for vegetation - BOB shows vegetation and septic emboli as above - No history of prosthetic valves or hardware, however IVDU and persistent bacteremia suggest complicated MRSA bacteremia Blood cultures positive on 07/08, 07/09, 07/11, 07/15 all positive for MRSA despite vancomycin therapy No evidence of janeway lesions, osler nodes, conjunctival hemorrhage, thrush on exam CTA shows septic emboli on last visit before leaving AMA. Plan Continue vancomycin, day 3 - Duration likely 6 weeks given complicated MRSA bacteremia - Vanc trough 15- Qualifiers: Infective endocarditis organism: bacterial Chronicity: acute Qualified Code(s): I33.0 - Acute and subacute infective endocarditis (3) Bacteremia Current Visit: Yes Status: Acute - as above for sepsis - positive for MRSA - Continue vanc (4) IV drug abuse Current Visit: Yes Status: Chronic - Known history of IVDU with heroin use. - Most recent use 07/14 after leaving AMA from hospital - Encouraged cessation - Patient states that he is normally on suboxone however the pain was too severe to handle while admitted - Further management per primary team and outpatient. - HIV negative. Known history of Hep C and Hep B core positive (5) Hepatitis C Current Visit: Yes Status: Chronic - Known history of hepatitis C, has not had treatment - Secondary to IVDU - LFTs wnl. - Further management as outpatient Qualifiers: Viral hepatitis chronicity: chronic Hepatic coma status: without hepatic coma Qualified Code(s): B18.2 - Chronic viral hepatitis C (6) History of hepatitis B Current Visit: Yes Status: Chronic - Found on last admission with Hep B core Ag positive. - Immune. Core Ag positive but surface Ag negative. - Secondary to IVDU - LFTs wnl. - Further management as outpatient - Subjective Interval history: Patient seen and examined up at since morning. Overall, he states that he is feeling much better with more energy. He denies any symptoms of fevers, chills overnight. His pain is still present however it is decreased from previous. He still does admit to some pleuritic chest pain as well as abdominal pain. Denies any symptoms of nausea, vomiting and tolerated breakfast without complaints. Infect Dis PN-Objective Data - Labs CBC & Chem 7: 07/17/18 03:11 07/17/18 03:11 Labs: Laboratory Results - last 24 hr 07/17/18 07/17/18 07/17/18 03:11 03:11 03:11 WBC 24.6 H RBC 3.34 L Hgb 8.6 L Hct 26.4 L MCV 79.0 L MCH 25.7 L MCHC 32.6 RDW 16.4 H Plt Count 279 MPV 11.5 Seg Neutrophils % 88.0 Band Neutrophils % 3.0 Lymphocytes % 5.0 Monocytes % 4.0 Neutrophils # 22.4 H Lymphocytes # 1.2 Monocytes # 1.0 Platelet Estimate Normal Hypochromasia Present A Sodium 136 Potassium 4.0 Chloride 102 Carbon Dioxide 23 BUN 29 H Creatinine 0.84 Est GFR ( Amer) > 60 Est GFR (Non-Af Amer) > 60 BUN/Creatinine Ratio 35 H Glucose 120 H Calculated Osmolality 289 Calcium 7.6 L Total Bilirubin 0.4 AST 27 ALT 21 Alkaline Phosphatase 101 Serum Total Protein 5.9 L Albumin 1.9 L Globulin 4.0 H Albumin/Globulin Ratio 0.5 L Vancomycin Trough 23 H Cultures: Cultures 07/17/18 10:05 Blood Culture - Preliminary Peripheral Venipuncture Culture is incubating and being continuously monitored for growth. Final report to follow. 07/17/18 10:05 Blood Culture - Preliminary Peripheral Venipuncture Culture is incubating and being continuously monitored for growth. Final report to follow. 07/15/18 15:34 Blood Culture - Final Peripheral Venipuncture Methicillin Resistant S.aureus 07/15/18 16:22 Blood Culture - Final Peripheral Venipuncture Methicillin Resistant S.aureus 07/15/18 15:53 Blood Culture - Final Peripheral Venipuncture Methicillin Resistant S.aureus Serology 07/15/18 07/15/18 07/15/18 Range/Units 18:23 18:23 15:53 T.pallidum Ab Interpret Negative (NEGATIVE) A. baumannii (PCR) Not Detected (Not Detect) Monse albicans (PCR) Not Detected (Not Detect) C. glabrata (PCR) Not Detected (Not Detect) C. krusei (PCR) Not Detected (Not Detect) C. parapsilosis (PCR) Not Detected (Not Detect) C. tropicalis (PCR) Not Detected (Not Detect) Enterobacteriac sp PCR Not Detected (Not Detect) E. cloacae complex PCR Not Detected (Not Detect) Enterococcus sp PCR Not Detected (Not Detect) E. coli (PCR) Not Detected (Not Detect) H. influenzae (PCR) Not Detected (Not Detect) HIV Ag/Ab Combo Qual Nonreactive (Nonreactive) Klebsiella oxytoca PCR Not Detected (Not Detect) Klebsiella pneumoniae Not Detected (Not Detect) List. monocytogenes PCR Not Detected (Not Detect) N. meningitidis (PCR) Not Detected (Not Detect) Proteus species (PCR) Not Detected (Not Detect) Serratia marcescens PCR Not Detected (Not Detect) Staphylococcus sp PCR DETECTED A (Not Detect) Staph aureus (PCR) DETECTED A (Not Detect) mecA-Methicil Res Gene DETECTED A (Not Detect) Streptococcus sp PCR Not Detected (Not Detect) Group A Strep DNA Not Detected (Not Detect) Group B Strep (PCR) Not Detected (Not Detect) Strep pneumoniae (PCR) Not Detected (Not Detect) P. aeruginosa (PCR) Not Detected (Not Detect) Pravin/B-Vanco Res Genes Not Detected (Not Detect) KPC (blaKPC) Detect PCR N/A (Not Detect) Exam - Constitutional Vitals: Temp Pulse Resp BP Pulse Ox 97.6 F 90 18 108/82 96 07/17/18 01:11 07/17/18 07:16 07/17/18 07:16 07/17/18 07:16 07/17/18 07:16 Exam: Gen.: Vitals noted. No acute distress. AAOx3. Resting comfortably in bed. Sleeping when I entered. Neck: No meningeal signs, no nuchal regidity, no cervical adenopathy. HEENT: PERRL/EOMI, oropharynx clear, Normocephalic, atraumatic, MMM, no conjunctival hemorrhage, poor dentition. Cardiac: RRR, no murmur, +S1/S2 Pulmonary: CTA bilaterally, no wheezes, rales or rhonchi, equal chest expansion Abdomen: soft, diffusely tender to mild palpation, possible hepatomegaly, BS noted, no guarding, no rebound. MSK: ROM intact, no joint swelling noted Skin: No rashes, no janeway lesions or oslers nodes. Multiple tattoos Extremities: no BLE edema, nontender calf, no cyanosis or clubbing Neuro: A&Ox3, moves all extremities, no focal deficits Psych: Appropriate mood and behavior Consult Discharge Plan - Plan Referrals: NONE,PCP [Primary Care Provider] - - Attending Attestation I examined this patient and my medical decision-making was reviewed with the Resident Physician. I agree with the documented findings, disposition and treatment plan as described except to the extent set forth below.
--- NOTE | 2018-07-17 19:30 | Discharge Summary ---
<Donny Smith S - Last Filed: 07/17/18 15:36> - NOTES TO OUTPATIENT PROVIDER Notes to Outpatient Provider: Follow up with Donny Smith in residency clinic following tx. Needs GI workup outpt for hepatitis c. Orders not resulted at time of discharge: Pending orders 07/17/18 10:05 Culture,Blood [BC] Routine 07/18/18 04:00 Complete Blood Count [HEME] AM 0400 Comprehensive Metabolic Panel AM 0400 Date of Encounter: 07/17/18 Time of Encounter: 15:30 - Discharge Diagnosis (1) Sepsis Priority: Secondary Status: Acute Qualifiers: Sepsis type: methicillin resistant Staphylococcus aureus Qualified Code(s): A41.02 - Sepsis due to Methicillin resistant Staphylococcus aureus (2) Bacteremia Priority: Secondary Status: Acute (3) Pneumonia Priority: Secondary Status: Acute Qualifiers: Pneumonia type: due to unspecified organism Laterality: unspecified laterality Lung location: unspecified part of lung Qualified Code(s): J18.9 - Pneumonia, unspecified organism (4) IV drug abuse Priority: Secondary Status: Chronic (5) Tobacco dependence Priority: Secondary Status: Chronic (6) Hepatitis C Priority: Secondary Status: Chronic Qualifiers: Viral hepatitis chronicity: chronic Hepatic coma status: without hepatic coma Qualified Code(s): B18.2 - Chronic viral hepatitis C (7) DVT prophylaxis Priority: Secondary Status: Acute (8) Infective endocarditis Priority: Primary Status: Acute Qualifiers: Infective endocarditis organism: bacterial Chronicity: acute Qualified Code(s): I33.0 - Acute and subacute infective endocarditis Hospital course: Mr. Dill is a 37 year old male with a PMH of IVDU on suboxone and hepatitis C presents with the cc of fevers. He last used yesterday in the right arm via shooting up. He presents to the ER with continuation of his s/s from his last visit on 07/08. He c/o fevers, SOB, cough. He has chest pain that is worse with inspiration and abdominal pain. He has body aches as well. T max of 103* as per the thermometer the pt sister used. During his last visit, the pt left AMA. He was found to have a LVEF of 45% on ECHO with mild global LV systolic dysfxn. He has MRSA (+) blood cx on 07/08 and repeat were positive on the . CXR on his last visit showed multifocal lung consolidation in the right and left lower lobe concerning for pneumonia. CTA of the exam revealed multiple ill defined lung nodules indicating septic emboli. In the ER the pt was given a dose of zosyn. His initial troponin was (-) and his EKG showed sinus tacycardia. There were t wave inversions in v3, which appeared unchanged since his last visit. Sepsis criteria on admission -WBC count 24.6 - temperature 102.7 - HR 126, RR 20 Currently meets sepsis criteria - WBC 24.6 - t - 97.6 - HR 90, RR 18 On 07/08 & 07/09 - pt had blood cx positive for MRSA Repeat blood cx 07/15 - g(+) cocci on preliminary report ECHO on 07/09 - LVEF 45%, mild global LV systolic dysfxn - mild dilated RV with mild hypokinesis - suggestion of RV volume overload - no evidence of vegetation BOB performed yesterday showed - LVEF 60-65% - fleshy, echogenic mass , suspiciosu of a vegetation on the posterior leaflet and transverse sinus ; suspicious for septic emboli - severe TR Meeks's criteria Major criteria - blood cx (+) for MRSA Minor criteria - fever, IVDU hx, pulmonary septic emboli High suspiscion for IE Pt has no vascular phenomenom such as osler's nodes, monzon spots, janeway lesions Pt is on Vancomycin as per ID. Due to the large size of the vegetations, ID is recommending transfer to [facility] -spoke with [facility] transfer line to move patient - pt may need Cardiothoracic sx - currently hemodynamically stable, however, pt is very ill Time spent discussing smoking cessation with patient: 3 to 10 minutes - Time Spent with Patient Total time spent providing and/or coordinating discharge services: Less than 30 minutes - Discharge Medications Home Medications: Acetaminophen [Pain Relief] 500 mg PO BID PRN 07/08/18 [History] Buprenorphine HCl/Naloxone HCl [Buprenorphin-Naloxon 8-2 mg Sl] 1 tab PO BID 07/08/18 [History] Ibuprofen 800 mg PO TID PRN 07/08/18 [History] Fluticasone Propionate [Aller-Yves] 1 spr NS DAILY 07/15/18 [History] Allergies/Adverse Reactions: Allergy/AdvReac Type Severity Reaction Status Date / Time codeine Allergy Rash Verified 07/08/18 13:30 tramadol Allergy Rash Verified 07/08/18 13:30 Date of admission: 07/15/18 18:12 Primary care physician: PCP NONE Consults: 07/15/18 17:03 Consult to Cardiology [CONS] Stat Comment: Consulting Provider: Cardiology Shana Reason for Consult: possible septic emboli to heart Call Completed: No Consult to Infectious Diseases [CONS] Stat Consulting Provider: Infectious Disease Shana Reason for Consult: IE Call Completed: No 07/15/18 17:04 Consult to Loss Prevention Agent [CONS] Routine Reason for SW Consult: drug abuse Discharging clinician: Donny Smith Anticipated date of discharge: 07/17/18 - Constitutional Vitals: Temp Pulse Resp BP Pulse Ox 97.8 F 93 18 119/87 96 07/17/18 15:27 07/17/18 15:27 07/17/18 15:27 07/17/18 15:27 07/17/18 15:27 Exam: general - aox3, in mild distress, lethargic heent - ncat, mucus membranes moist cardio - tacycardia, no murmur, s1s2 present lungs - breath sounds diminished b/l, mild wheezing abd - tender to palpation, no rebound/guarding, no mass skin - many tattoos, no track reid, no splinter hemorrhages noted, no osler nodules - Patient Status Disposition: Transfer Short-Term Hosp Condition: Fair Functional capacity at discharge: independent ambulation Overall status at discharge: patient is not back to baseline - Discharge Instructions Follow Up With: NONE,PCP [Primary Care Provider] - Donny Smith [Resident] - 07/29/18 - Diet and Activity Activity: increase activity as tolerated Diet: regular diet <Steph Whipple Rhejeniffer - Last Filed: 07/17/18 18:01> Orders not resulted at time of discharge: Pending orders 07/17/18 10:05 Culture,Blood [BC] Routine 07/18/18 04:00 Complete Blood Count [HEME] AM 0400 Comprehensive Metabolic Panel AM 0400 - Discharge Diagnosis (1) Pneumonia Status: Acute Qualifiers: Pneumonia type: due to unspecified organism Laterality: unspecified laterality Lung location: unspecified part of lung Qualified Code(s): J18.9 - Pneumonia, unspecified organism (2) Sepsis Status: Acute Qualifiers: Sepsis type: methicillin resistant Staphylococcus aureus Qualified Code(s): A41.02 - Sepsis due to Methicillin resistant Staphylococcus aureus (3) IV drug abuse Status: Chronic (4) Tobacco dependence Status: Chronic (5) Bacteremia Status: Acute (6) Hepatitis C Status: Chronic Qualifiers: Viral hepatitis chronicity: chronic Hepatic coma status: without hepatic coma Qualified Code(s): B18.2 - Chronic viral hepatitis C (7) DVT prophylaxis Status: Acute (8) Infective endocarditis Status: Acute Qualifiers: Infective endocarditis organism: bacterial Chronicity: acute Qualified Code(s): I33.0 - Acute and subacute infective endocarditis Hospital course: Mr. Dill is a 37 year old male - Time Spent with Patient Total time spent providing and/or coordinating discharge services: Date of admission: 07/15/18 18:12 Primary care physician: PCP NONE Consults: 07/15/18 17:03 Consult to Cardiology [CONS] Stat Comment: Consulting Provider: Cardiology Ovalo Reason for Consult: possible septic emboli to heart Call Completed: No Consult to Infectious Diseases [CONS] Stat Consulting Provider: Infectious Disease Shana Reason for Consult: IE Call Completed: No 07/15/18 17:04 Consult to Loss Prevention Agent [CONS] Routine Reason for SW Consult: drug abuse - Constitutional Vitals: Temp Pulse Resp BP Pulse Ox 97.8 F 93 16 119/87 100 07/17/18 15:27 07/17/18 15:27 07/17/18 17:37 07/17/18 15:27 07/17/18 17:37 - Attending Attestation I examined this patient and my medical decision-making was reviewed with the Resident Physician. I agree with the documented findings, disposition and treatment plan as described except to the extent set forth below.
[2018-07-17] MEDS ORDERED: *HR* Buprenorphine HCl 2 MG SUBLINGUAL TABLET SL SCH (21:00)
[2018-07-18 03:12] LABS: Acinetobacter baumannii by PCR Not Detected (Not Detect); Candida albicans by PCR Not Detected (Not Detect); Candida glabrata by PCR Not Detected (Not Detect); Candida krusei by PCR Not Detected (Not Detect); Candida parapsilosis by PCR Not Detected (Not Detect); Candida tropicalis by PCR Not Detected (Not Detect); Enterobacter cloacae Cmplx PCR Not Detected (Not Detect); Enterobacteriaceae by PCR Not Detected (Not Detect); Enterococcus by PCR Not Detected (Not Detect); Escherichia coli by PCR Not Detected (Not Detect); Klebsiella oxytoca by PCR Not Detected (Not Detect); Klebsiella pneumoniae by PCR Not Detected (Not Detect); Proteus by PCR Not Detected (Not Detect); Pseudomonas aeruginosa by PCR Not Detected (Not Detect); Serratia marcescens by PCR Not Detected (Not Detect); Staphylococcus aureus by PCR DETECTED (Not Detect); Staphylococcus by PCR DETECTED (Not Detect); Streptococcus agalactiae(B)PCR Not Detected (Not Detect); Streptococcus by PCR Not Detected (Not Detect); Streptococcus pneumoniae PCR Not Detected (Not Detect); Streptococcus pyogenes (A) PCR Not Detected (Not Detect); blaKPC Carbapenem-Resist Gene Not Detected (Not Detect); mecA Methicillin-Resist Gene DETECTED (Not Detect); vanA/B Vancomycin-Resist Genes Not Detected (Not Detect)
--- NOTE | 2018-07-18 22:20 | Electrocardiograph Report ---
[address] [address] Test Date: 2018-07-15 Pat Name: Andrea Dill Department: EXAM8 Room: [facility] Gender: M [employer]: : 1980 Requested By: Manny Ayoub Order Number: [id number] Reading MD: Abigail Garcia Measurements Intervals [place] Rate: 108 P: 85 [place]: 113 QRS: 96 QRSD: 107 T: 60 QT: 339 QTc: 455 Interpretive Statements Sinus tachycardia Borderline right axis deviation Electronically Signed On 07-18-2018 22:18:42 EDT by Abigail Garcia
== END 2018-07-17 19:16 | disposition short-term general hospital (02) | DRG 720 ==
LOC: 2NENU 15:06 → EMEROOARM 15:06 → 2NENU 17:47 → SUATTDRO 18:12
PROVIDERS: ADMIT Internal Medicine Nephrology; ATTEND Student in an Organized Health Care Education/Training Program